=== PATIENT | female | born 1960 | race Caucasian/White ===

== ENCOUNTER 2016-07-10 14:00 | Outpatient (CLI) | payer MEDICARE, MEDICAID | END 2016-07-10 14:01 | disposition home or self-care (01) | DX: G40.909 Epilepsy, unspecified, not intractable, without status epilepticus (principal) ==

== ENCOUNTER 2016-08-05 10:18 | Outpatient (CLI) | payer MEDICARE, MEDICAID | END 2016-08-05 10:19 | disposition home or self-care (01) | DX: S83.282A Other tear of lateral meniscus, current injury, left knee, initial encounter (principal); A52.16 Charcot's arthropathy (tabetic) ==

== ENCOUNTER 2016-08-05 10:31 | Outpatient (CLI) | payer MEDICARE, MEDICAID | END 2016-08-05 10:32 | disposition home or self-care (01) | DX: M79.671 Pain in right foot (principal) ==

== ENCOUNTER 2016-08-14 | Outpatient (CLI) | payer MEDICARE, MEDICAID | END 2016-08-14 13:05 | disposition home or self-care (01) ==

== ENCOUNTER 2016-08-28 08:22 | Outpatient (CLI) | payer MEDICARE, MEDICAID | END 2016-08-28 08:23 | disposition home or self-care (01) | DX: K74.60 Unspecified cirrhosis of liver (principal); R16.1 Splenomegaly, not elsewhere classified; M79.672 Pain in left foot; Z89.422 Acquired absence of other left toe(s) ==

== ENCOUNTER 2016-08-28 09:01 | Outpatient (CLI) | payer MEDICARE, MEDICAID | END 2016-08-28 09:02 | disposition home or self-care (01) | DX: M79.672 Pain in left foot (principal); Z89.422 Acquired absence of other left toe(s); K74.60 Unspecified cirrhosis of liver; R16.1 Splenomegaly, not elsewhere classified ==

== ENCOUNTER 2016-12-12 12:38 | Emergency (ER) | payer MEDICARE, MEDICAID ==
[2016-12-12 13:24] LABS: BASOPHILS % (AUTO) 0.6 %; EOSINOPHILS % (AUTO) 0.6 %; HCT - HEMATOCRIT 31.2 % (37.0-47.0); HGB - HEMOGLOBIN 10.6 g/dL (12.0-16.0); LYMPHOCYTES # (AUTO) 0.5 10^3/uL (1.5-3.5); LYMPHOCYTES % (AUTO) 10.9 %; MEAN CORPUSCULAR HEMOGLOBIN 28.5 pg (27.0-31.0); MEAN CORPUSCULAR HGB CONC 33.9 g/dL (32.0-36.0); MEAN CORPUSCULAR VOLUME 84.1 fL (81.0-99.0); MEAN PLATELET VOLUME 9.4 fL (7.9-10.8); MONOCYTES # (AUTO) 0.4 10^3/uL (0.0-1.0); MONOCYTES % (AUTO) 10.6 %; NEUTROPHILS # (AUTO) 3.2 10^3/uL (1.5-6.6); NEUTROPHILS % (AUTO) 77.3 %; RED BLOOD COUNT 3.71 10^6/uL (4.20-5.40); RED CELL DISTRIBUTION WIDTH 15.8 % (12.0-15.0); UNCORRECTED WHITE BLOOD COUNT 4.2 x10^3/uL; WHITE BLOOD COUNT 4.2 x10^3/uL (4.8-10.8)
--- NOTE | 2016-12-12 13:26 | ED Physician Documentation ---
PD HPI FEVER - Stated complaint Stated Complaint: FEVER - Chief complaint Chief Complaint: Fever - History obtained from History obtained from: Patient, Family - History of Present Illness Timing - onset: How many days ago (2) Timing duration: Days (2) Timing details: Gradual onset Pain level max: 0 Pain level now: 0 Associated symptoms: No: Hemoptysis, Dyspnea, NVD Contributing factors: Immunocompromised. No: Sick contact, Travel Recently seen: Surgery - Additional information Additional information: L subclavian artery stent placed 7 days ago. Started having fevers 2 days ago. Pt is on dialysis. Had dialysis this am. No fever at that time. States has had sore throat, cough since the surgery. +nausea. no vomiting, no change in chronic abd pain. Pt is anuric. Review of Systems Ten Systems: 10 systems reviewed and negative Respiratory: denies: Hemoptysis, Wheezing GI: denies: Vomiting, Hematemesis, Bloody / black stool Skin: denies: Rash Musculoskeletal: denies: Neck pain, Back pain Neurologic: denies: Focal weakness, Numbness, Headache PD PAST MEDICAL HISTORY - Past Medical History Past Medical History: Yes Cardiovascular: Congestive heart failure, Hypertension, High cholesterol, Coronary artery disease, Peripheral Vascular Disease, Angina, [place], Arrhythmia, Other Respiratory: Pneumonia, Shortness of breath, Sleep apnea, CPAP use, Other Neuro: Peripheral neuropathy, Seizure disorder Endocrine/Autoimmune: Type 2 diabetes, Other GI: GERD, GI bleed, Ulcers, Cirrhosis, Cholelithiasis, Other : Dialysis, Renal insuffiency, Other HEENT: Chronic vision loss, Other Psych: Depression, Anxiety, Panic attacks, Post traumatic stress disorder Musculoskeletal: Osteoarthritis, Fibromyalgia, Chronic back pain, Other Derm: None - Past Surgical History Past Surgical History: Yes General: EGD, Other Ortho: Carpal Tunnel surgery Cardiovascular: Coronary stent, Cardiac catheterization Neuro: Other HEENT: Myringotomy (tubes) Derm: Skin cancer surgery, Other - Present Medications Home Medications: Ambulatory Orders Medication Instructions Recorded Confirmed Acetaminophen [Tylenol Extra 650 mg PO DAILY PRN 11/08/12 06/17/16 Strength] Calcium Acetate [Phoslo] 667 mg PO BIDWM 11/08/12 06/17/16 Cinacalcet HCl [Sensipar] 30 mg PO QDDINNER 11/08/12 06/17/16 Dexlansoprazole [Dexilant] 60 mg PO QDAC 11/08/12 06/17/16 Mometasone Furoate [Nasonex] 2 puffs NS QAM 11/08/12 06/17/16 Ropinirole HCl [Requip Xl] 4.5 mg PO QPM 11/08/12 06/17/16 Vitamin B Complex [B Complete] 1 each PO QPM 11/08/12 06/17/16 Levetiracetam 750 - 1,000 mg PO DAILY 09/18/13 06/17/16 Nitroglycerin 0.4 mg PO Q5MIN PRN 12/28/13 06/17/16 Atorvastatin Calcium [Lipitor] 40 mg PO DAILY 10/09/14 06/17/16 oxyCODONE [Roxicodone] 5 mg PO Q4-6H #20 tablet 03/14/15 06/17/16 Bacillus Coagulans [Probiotic] 1 each PO DAILY 02/13/16 06/17/16 Docusate Sodium [Stool Softener] 1 cap PO DAILY PRN 02/13/16 06/17/16 Aspirin 81 mg PO DAILY 03/24/16 06/17/16 ALPRAZolam [Xanax] 0.25 mg PO DAILY 03/25/16 06/17/16 Paroxetine HCl [Paxil] 20 mg PO DAILY 03/25/16 06/17/16 Gabapentin 300 mg PO DAILY PM 06/12/16 06/17/16 Insulin Glargine,Hum.rec.anlog 14 unit SQ QDBREAKFAST 06/12/16 06/17/16 [Lantus Solostar] Insulin Glargine,Hum.rec.anlog 14 units SQ DAILY 06/17/16 06/17/16 [Lantus Solostar] Oseltamivir [Tamiflu] 75 mg PO BID #10 capsule 06/17/16 - Allergies Allergies/Adverse Reactions: Allergies Allergy/AdvReac Type Severity Reaction Status Date / Time amoxicillin trihydrate * Allergy Severe diarrhea Verified 03/14/15 15:38 [From Augmentin] benazepril HCl * Allergy Severe Dizziness Verified 03/14/15 15:38 [From Lotensin] cephalexin monohydrate * Allergy Severe bloody Verified 03/14/15 15:38 [From Keflex] diarrhea iodine Allergy Severe Hives Verified 03/24/16 10:56 metoclopramide Allergy Severe Hives Verified 03/24/16 10:56 potassium clavulanate * Allergy Severe diarrhea Verified 03/14/15 15:38 [From Augmentin] povidone-iodine Allergy Intermediate Itching Verified 03/24/16 10:56 [From Betadine] soap * [From Betadine] Allergy Intermediate Itching Verified 03/24/16 10:56 Sulfa (Sulfonamide Allergy Intermediate Hallucinati Verified 03/14/15 15:38 Antibiotics) ons cigarette smoke Allergy Respiratory Verified 03/25/16 08:22 perfume Allergy Respiratory Verified 03/25/16 08:22 strawberry Allergy Hives Verified 03/25/16 08:22 tetracycline [Tetracycline] AdvReac Severe RUINED Verified 03/14/15 15:38 TEETH ENAMEL iron sucrose complex * AdvReac Intermediate diarrhea Verified 03/14/15 15:38 [From Venofer] metoclopramide HCl * AdvReac Intermediate Emesis Verified 03/14/15 15:38 [From Reglan] nickel [Nickel] AdvReac Intermediate Rash Verified 03/14/15 15:38 adhesive AdvReac Mild Rash Verified 03/24/16 10:56 adhesive tape AdvReac Mild Rash Verified 03/24/16 10:56 rye Allergy Rash Uncoded 03/25/16 08:22 - Living Situation Living Situation: reports: With family Living Arrangement: reports: At home - Social History Does the pt smoke?: No Smoking Status: Never smoker Does the pt drink ETOH?: No Does the pt have substance abuse?: No - Family History Family history: reports: Non contributory - Immunizations Immunizations are current?: Yes - POLST Patient has POLST: No PD ED PE NORMAL - Vitals Vital signs reviewed: Yes - General General: Alert and oriented X 3, No acute distress, Well developed/nourished - HEENT HEENT: PERRL, Moist mucous membranes - Neck Neck: Supple, no meningeal sign - Cardiac Cardiac: RRR, Strong equal pulses - Respiratory Respiratory: No respiratory distress, Clear bilaterally - Abdomen Abdomen: Soft, Non tender, Non distended - Derm Derm: Warm and dry - Extremities Extremities: No edema, No calf tenderness / cord - Neuro Neuro: Alert and oriented X 3 - Psych Psych: Normal mood, Normal affect Results - Vitals Vitals: Vital Signs - 24 hr 12/12/16 12/12/16 12/12/16 12:39 15:00 17:19 Temperature 39.4 C H 39 C H 39.1 C H Heart Rate 96 88 91 Respiratory 18 18 18 Rate Blood Pressure 144/72 H 132/53 H 130/69 O2 Saturation 98 98 97 Oxygen O2 Source Room air - Labs Labs: Laboratory Tests 12/12/16 12/12/16 12/12/16 13:05 13:05 13:05 WBC 4.2 L RBC 3.71 L Hgb 10.6 L Hct 31.2 L MCV 84.1 MCH 28.5 MCHC 33.9 RDW 15.8 H Plt Count 103 L MPV 9.4 Neut # 3.2 Lymph # 0.5 L [place] # 0.4 Eos # 0.0 Baso # 0.0 Absolute Nucleated RBC 0.00 Nucleated RBCs 0.0 Manual Slide Review Indicated Sodium 136 Potassium 4.4 Chloride 95 L Carbon Dioxide 28 Anion Gap 13.0 BUN 20 Creatinine 5.0 H Estimated GFR (MDRD) 9 L Glucose 197 H Lactic Acid 2.3 H Calcium 9.0 Total Bilirubin 1.4 H AST 37 ALT 31 Alkaline Phosphatase 126 H Total Protein 7.2 Albumin 3.4 Globulin 3.8 Albumin/Globulin Ratio 0.9 L Lipase 36 Group A Strep Rapid 12/12/16 13:30 WBC RBC Hgb Hct MCV MCH MCHC RDW Plt Count MPV Neut # Lymph # [place] # Eos # Baso # Absolute Nucleated RBC Nucleated RBCs Manual Slide Review Sodium Potassium Chloride Carbon Dioxide Anion Gap BUN Creatinine Estimated GFR (MDRD) Glucose Lactic Acid Calcium Total Bilirubin AST ALT Alkaline Phosphatase Total Protein Albumin Globulin Albumin/Globulin Ratio Lipase Group A Strep Rapid Negative - Rads (name of study) cxr Radiology: Prelim report reviewed, EMP read contemporaneously, See rad report ( No acute disease identified. ) PD MEDICAL DECISION MAKING - ED course Complexity details: reviewed results, re-evaluated patient, considered differential, d/w patient, d/w family, d/w weight loss sales consultant ED course: 1500 - Dr. Diggs (hospitalist) at [facility] accepts in transfer. Given IV vanco and levaquin here. Patient is well-appearing, nontoxic but does have an elevated lactate. Concern for sepsis. Blood cultures drawn. Chest x-ray negative. Patient is an uric. Given IV fluids. Has multiple antibiotic allergies. Therefore will treat with Levaquin and vancomycin. Likely that this is related to the recent stent placement. Will transfer the patient to [facility] in [place] as dialysis is not available here. This document was made in part using voice recognition software. While efforts are made to proofread this document, sound alike and grammatical errors may occur. Departure - Departure Disposition: 02 Transfer Acute Care Hosp Clinical Impression: Fever Qualifiers: Fever type: unspecified Qualified Code(s): R50.9 - Fever, unspecified Sepsis Qualifiers: Sepsis type: sepsis due to unspecified organism Qualified Code(s): A41.9 - Sepsis, unspecified organism Condition: Stable Discharge Date/Time: 12/12/16 17:20
[2016-12-12 13:39] LABS: ALBUMIN/GLOBULIN RATIO 0.9 (1.0-2.2); BILIRUBIN,TOTAL 1.4 mg/dL (0.2-1.0); POTASSIUM 4.4 mmol/L (3.5-5.0); TOTAL PROTEIN 7.2 g/dL (6.7-8.2)
[2016-12-12] MEDS ORDERED: SODIUM CHLORIDE 0.9% 500 ML IV ONE (13:39)
[2016-12-12 14:00] LABS: RAPID STREP SCREEN REAGENT QC YELLOW (YELLOW)
[2016-12-12] MEDS ORDERED: SODIUM CHLORIDE 0.9% IV STA (14:42)
[2016-12-12] MEDS ORDERED: VANCOMYCIN PER PHARMACY IV STA (14:42)
[2016-12-12] MEDS ORDERED: SODIUM CHLORIDE 0.9% 1,000 ML IV ONE (14:45)
[2016-12-12] MEDS ORDERED: VANCOMYCIN INJ 1 GM, VANCOMYCIN INJ 500 MG in SODIUM CHLORIDE 0.9% 500 ML IV STA (14:54)
--- NOTE | 2016-12-12 15:00 | XRAY Preliminary Report ---
Exam: XR Chest 2 View PA/LAT IMPRESSION: No acute disease identified. [facility] SITE ID: [id number]
--- NOTE | 2016-12-12 15:03 | XRAY Report ---
EXAM: CHEST RADIOGRAPHY EXAM DATE: 12/12/2016 02:34 PM. CLINICAL HISTORY: Cough, fever. COMPARISON: 06/17/2016. TECHNIQUE: 2 views. FINDINGS: Lungs/Pleura: No focal opacities evident. No pleural effusion. No pneumothorax. Normal volumes. Evalu ation slightly limited secondary to large amount of overlying soft tissue. Mediastinum: Mildly enlarged without focal masses identified. Other: None. IMPRESSION: No acute disease identified. [facility] Referring Provider Line: [phone] SITE ID: [id number]
[2016-12-12 17:20] VITALS: BP 130/69
== END 2016-12-12 17:20 | disposition short-term general hospital (02) ==
LOC: ED 12:38
DX: A41.9 Sepsis, unspecified organism (principal); Z95.828 Presence of other vascular implants and grafts; Z99.2 Dependence on renal dialysis; Z88.1 Allergy status to other antibiotic agents; Z88.0 Allergy status to penicillin; Z88.2 Allergy status to sulfonamides; I11.0 Hypertensive heart disease with heart failure; I50.9 Heart failure, unspecified; I25.10 Atherosclerotic heart disease of native coronary artery without angina pectoris; Z95.5 Presence of coronary angioplasty implant and graft; I25.2 Old myocardial infarction; E11.42 Type 2 diabetes mellitus with diabetic polyneuropathy; Z79.4 Long term (current) use of insulin; Z79.82 Long term (current) use of aspirin
CPT/HCPCS: 36415; 71020; 80053; 83605; 83690; 85025; 87040; 87070; 87430; 96361; 96365; 96367; 99284; 99285; J3370

== ENCOUNTER 2016-12-12 17:18 | Outpatient (CLI) | payer MEDICARE, MEDICAID | END 2016-12-12 17:19 | disposition short-term general hospital (02) | LOC: EMS 17:18 | PROVIDERS: ATTEND Surgery | DX: A41.9 Sepsis, unspecified organism (principal) | CPT/HCPCS: A0425; A0426 ==

== ENCOUNTER 2017-02-24 11:14 | Outpatient (CLI) | payer MEDICARE, MEDICAID ==
--- NOTE | 2017-02-24 16:01 | Ultrasound Report ---
COMPLETE ABDOMINAL ULTRASOUND: 02/24/2017 CLINICAL INDICATION: Cirrhosis. COMPARISON: 08/28/2016 TECHNIQUE: Real-time scanning was performed with visitor services representative static images obtained. FINDINGS: The liver measures 14.7 cm. Hepatic echotexture is heterogeneous, with a nodular surface, compatible with cirrhosis. No focal parenchymal lesion or intrahepatic biliary dilatation is presen t. A small amount of pneumobilia is noted, likely related to previous sphincterotomy. The common bi le duct measures 4 mm. The gallbladder again demonstrates stones. The visualized pancreas is unrema rkable. The right kidney measures 19.5 cm, and demonstrates polycystic changes. The left kidney is surgically absent. The spleen measures 18.7 cm, and again demonstrates calcification. The abdominal aorta is normal in caliber. The inferior vena cava is unremarkable. No free fluid is present. IMPRESSION: CONTRACTED GALLBLADDER, WITH CALCULI. STABLE CIRRHOTIC CHANGES. NO ASCITES. POLYCYSTI C RIGHT KIDNEY. JOB #: [id number] EXT JOB #:
== END 2017-02-24 11:15 | disposition home or self-care (01) ==
LOC: DI 11:14
PROVIDERS: ATTEND Internal Medicine Gastroenterology
DX: K74.60 Unspecified cirrhosis of liver (principal); K80.20 Calculus of gallbladder without cholecystitis without obstruction
CPT/HCPCS: 76700

== ENCOUNTER 2017-06-25 08:44 | Outpatient (CLI) | payer MEDICARE, MEDICAID ==
--- NOTE | 2017-06-26 10:01 | Ultrasound Report ---
DATE OF SERVICE: 06/25/2017 DIGITAL BILATERAL DIAGNOSTIC MAMMOGRAM: 06/25/2017, RIGHT BREAST ULTRASOUND: 06/25/2017 COMPARISON: None. Baseline exam. INDICATION: Right breast lump. TECHNIQUE: Bilateral MLO and CC breast views. FINDINGS: The breast parenchyma is heterogeneously dense, which may limit the sensitivity of mammography. A marker has been placed on the periareolar right breast lower inner quadrant. No dominant mass, architectural distortion, or concerning cluster of microcalcifications is seen. Focused sonography of the area of concern demonstrates an isoechoic nodule, 5 x 4 x 2 mm, with a split dermis sign, consistent with an epidermal inclusion cyst. IMPRESSION: BI-RADS category 2. Benign findings. RECOMMENDATIONS: Annual screening mammogram. STANDARD QUALIFYING STATEMENTS 1. This examination was reviewed with the aid of Computed-Aided Detection (CAD) . 2. A negative or benign imaging report should not delay biopsy if clinically suspicious findings are present. Consider surgical consultation if warranted. More than 5% of cancers are not identified by imaging. 3. Dense breasts may obscure an underlying neoplasm. TD: 06/25/2017 18:56 TARAH
== END 2017-06-25 08:45 | disposition home or self-care (01) ==
LOC: DI 08:44
PROVIDERS: ATTEND Family Medicine
DX: N63.14 Unspecified lump in the right breast, lower inner quadrant (principal)
CPT/HCPCS: 76642; 77066

== ENCOUNTER 2017-12-08 07:55 | Outpatient (CLI) | payer MEDICARE, MEDICAID ==
[2017-12-08 08:34] LABS: ABNORMAL LYMPHS % (MANUAL) 0 %
[2017-12-08 08:39] LABS: BASOPHILS % (AUTO) 0.9 %; EOSINOPHILS % (AUTO) 1.9 %; HGB - HEMOGLOBIN 9.7 g/dL (12.0-16.0); LYMPHOCYTES % (AUTO) 16.8 %; MEAN CORPUSCULAR HEMOGLOBIN 31.6 pg (27.0-31.0); MEAN CORPUSCULAR HGB CONC 33.6 g/dL (32.0-36.0); MEAN CORPUSCULAR VOLUME 93.9 fL (81.0-99.0); MEAN PLATELET VOLUME 8.3 fL (7.9-10.8); MONOCYTES % (AUTO) 7.7 %; NEUTROPHILS % (AUTO) 72.7 %; PLT - PLATELET COUNT 112 10^3/uL (130-450); RED BLOOD COUNT 3.08 10^6/uL (4.20-5.40); RED CELL DISTRIBUTION WIDTH 16.2 % (12.0-15.0); WHITE BLOOD COUNT 4.7 x10^3/uL (4.8-10.8)
[2017-12-08 09:06] LABS: BAND NEUTROPHILS % (MANUAL) 3 %; BASOPHILS # (MANUAL) 0.4 10^3/uL (0-0.1); BASOPHILS % (MANUAL) 8 %; DIFFERENTIAL COMMENT MANUAL DIFFERENTIAL; LYMPHOCYTES # (MANUAL) 0.8 10^3/uL (1.5-3.5); LYMPHOCYTES % (MANUAL) 14 %; MONOCYTES # (MANUAL) 0.2 10^3/uL (0.0-1.0); NEUTROPHILS # (MANUAL) 3.3 10^3/uL (1.5-6.6); NEUTROPHILS % (MANUAL) 67 %; RBC MORPHOLOGY (MULTIPLE) 2+ ANISOCYTOSIS (NORMAL)
[2017-12-08 09:27] LABS: HB2 TOTAL 10.3 g/dL; HEMOGLOBIN A1C 0.36 g/dL; HEMOGLOBIN A1C % 5.3 % (4.6-6.2)
[2017-12-08 09:34] LABS: ALBUMIN 3.3 g/dL (3.2-5.5); ALBUMIN/GLOBULIN RATIO 0.9 (1.0-2.2); ALKALINE PHOSPHATASE 141 IU/L (42-121); ALT ALANINE AMINOTRANSFERASE 22 IU/L (10-60); AST ASPARTATE AMINOTRANSFERASE 22 IU/L (10-42); BILIRUBIN,TOTAL 0.9 mg/dL (0.2-1.0); BUN - BLOOD UREA NITROGEN 47 mg/dL (6-20); CALCIUM 9.5 mg/dL (8.5-10.3); CARBON DIOXIDE - CO2 28 mmol/L (21-32); CHLORIDE 98 mmol/L (101-111); CHOL/HDL RATIO 5.2 (<4.4); CHOLESTEROL 120 mg/dL; CREATININE 6.6 mg/dL (0.4-1.0); GFR - MDRD 6 (>89); GLUCOSE 147 mg/dL (70-100); HDL CHOLESTEROL 23 mg/dL; LDL CHOLESTEROL,CALCULATED 43 mg/dL; LDL/HDL RATIO 1.9 (<4.4); SODIUM 135 mmol/L (135-145); TOTAL PROTEIN 6.8 g/dL (6.7-8.2); VLDL CHOLESTEROL 54 mg/dL
--- NOTE | 2017-12-08 16:30 | XRAY Report ---
Procedure Date: 12/08/2017 Accession Number: [id number] / [id number] Procedure: XR - Foot 3 View LT CPT Code: FULL RESULT: EXAM: LEFT FOOT RADIOGRAPHY EXAM DATE: 12/08/2017 08:19 AM. CLINICAL HISTORY: PAIN EDEMA L FOOT. COMPARISON: 08/28/2016. TECHNIQUE: 3 views. FINDINGS: Bones: No acute fracture. No osseous obstruction. Prior amputation of the second toe, unchanged. Prominent dorsal calcaneal spur unchanged. Joints: Mild subluxation of the first interphalangeal joint is unchanged. Hammertoe deformities. Soft Tissues: Diffuse soft tissue edema. Lower leg clips. IMPRESSION: No acute osseus abnormality. Diffuse soft tissue edema. [facility]
== END 2017-12-08 07:56 | disposition home or self-care (01) ==
LOC: DI 07:55
PROVIDERS: ATTEND Podiatrist
DX: M79.672 Pain in left foot (principal); R60.0 Localized edema; E11.9 Type 2 diabetes mellitus without complications
CPT/HCPCS: 36415; 80053; 80061; 83036; 83721; 84443; 85025

== ENCOUNTER 2018-01-12 10:51 | Outpatient (CLI) | payer MEDICARE, MEDICAID ==
--- NOTE | 2018-01-12 12:15 | XRAY Report ---
Procedure Date: 01/12/2018 Accession Number: [id number] / [id number] Procedure: XR - Knee 3 View RT CPT Code: FULL RESULT: EXAM: Knee 3 View RT DATE: 01/12/2018 11:17 AM CLINICAL HISTORY: KNEE PAIN,RIGHT COMPARISON: None. TECHNIQUE: 3 views. FINDINGS: Bones: Normal. No fractures or bone lesions. Joints: Mild loss of joint space, most pronounced in the medial femorotibial compartment and along the medial patellar facet. Soft Tissues: Normal. No soft tissue swelling. IMPRESSION: Mild degenerative changes. [facility]
== END 2018-01-12 10:52 | disposition home or self-care (01) ==
LOC: DI 10:51
PROVIDERS: ATTEND Family Medicine
DX: M17.11 Unilateral primary osteoarthritis, right knee (principal)

== ENCOUNTER 2018-08-17 11:18 | Outpatient (CLI) | payer MEDICARE, MEDICAID ==
--- NOTE | 2018-08-17 14:49 | XRAY Report ---
Reason: BILAT FOOT PAIN + EDEMA LATERAL L FOOT Procedure Date: 08/17/2018 Accession Number: [id number] / [id number] Procedure: XR - Foot 3 View BILAT CPT Code: FULL RESULT: EXAMS: 1. Right Foot Radiography 2. Left Foot Radiography EXAM DATE: 08/17/2018 12:00 PM. CLINICAL HISTORY: Bilateral foot pain + edema lateral left foot. COMPARISON: FOOT 3 VIEW LT 12/08/2017 8:08 AM. TECHNIQUE: 3 views each foot. FINDINGS: Right: Bones: Pes planus deformity. No fracture is detected. Joints: Pronounced midfoot degenerative changes. Soft Tissues: Soft tissue plethora. Left: Bones: Mild pes planus. Pronounced posterior calcaneal enthesopathy. Status post transphalangeal amputation of the second ray. No fracture is identified. Joints: Subluxation of the first interphalangeal joint. Soft Tissues: Surgical clips are noted near the medial ankle. Plethora. IMPRESSION: Right midfoot degenerative changes, marked. Bilateral pes planus. [facility]
== END 2018-08-17 11:19 | disposition home or self-care (01) ==
LOC: DI 11:18
PROVIDERS: ATTEND Podiatrist
DX: M19.071 Primary osteoarthritis, right ankle and foot (principal); S93.132A Subluxation of interphalangeal joint of left great toe, initial encounter; M21.42 Flat foot [pes planus] (acquired), left foot; M21.41 Flat foot [pes planus] (acquired), right foot

== ENCOUNTER 2018-09-30 15:34 | Outpatient (CLI) | payer MEDICARE, MEDICAID ==
[2018-10-02 16:01] LABS: ALBUMIN 3.3 g/dL (3.8-4.8); ALPHA 1 GLOBULIN 0.4 g/dL (0.2-0.3); ALPHA 2 GLOBULIN 0.7 g/dL (0.5-0.9); BETA 1 GLOBULIN 0.4 g/dL (0.4-0.6); BETA 2 GLOBULIN 0.4 g/dL (0.2-0.5)
== END 2018-09-30 15:35 | disposition home or self-care (01) ==
LOC: LAB 15:34
PROVIDERS: ATTEND Internal Medicine Nephrology
DX: D63.1 Anemia in chronic kidney disease (principal)
CPT/HCPCS: 36415; 81599; 83883; 84155; 84165; 86334

== ENCOUNTER 2018-10-08 08:00 | Outpatient (CLI) | payer MEDICARE, MEDICAID | END 2018-10-08 08:01 | disposition home or self-care (01) | LOC: LAB.R 08:00 | PROVIDERS: ATTEND Podiatrist | DX: E11.622 Type 2 diabetes mellitus with other skin ulcer (principal) | CPT/HCPCS: 87070; 87077; 87181; 87205 ==

== ENCOUNTER 2018-10-22 15:02 | Outpatient (CLI) | payer MEDICARE, MEDICAID ==
--- NOTE | 2018-10-25 00:34 | XRAY Report ---
Reason: PRESSURE ULCER RIGHT HALLUX CHANGING SHAPE Procedure Date: 10/22/2018 Accession Number: [id number] / [id number] Procedure: XR - Toe(s) RT CPT Code: FULL RESULT: EXAM: RIGHT GREAT TOE RADIOGRAPHY EXAM DATE: 10/22/2018 03:23 PM. CLINICAL HISTORY: Pressure ulcer. COMPARISON: FOOT 3 VIEW BILAT 08/17/2018 11:34 AM. TECHNIQUE: 3 views. FINDINGS: Bones: Nondisplaced fracture of the shaft of the distal phalanx, with bony osteolysis involving the tuft and loss of cortical white line. Joints: Normal. No subluxations. Soft Tissues: Unremarkable. IMPRESSION: 1. Osteolysis involving the tuft of the distal phalanx concerning for osteomyelitis. 2. Nondisplaced shaft fracture of the distal phalanx. [facility]
== END 2018-10-22 15:03 | disposition home or self-care (01) ==
LOC: DI 15:02
PROVIDERS: ATTEND Podiatrist
DX: M89.571 Osteolysis, right ankle and foot (principal); S92.424A Nondisplaced fracture of distal phalanx of right great toe, initial encounter for closed fracture; L89.899 Pressure ulcer of other site, unspecified stage
CPT/HCPCS: 73660

== ENCOUNTER 2018-11-02 06:06 | Day surgery (SDC) | payer MEDICARE, MEDICAID ==
[2018-11-02] MEDS ORDERED: LIDOCAINE-MPF 2% 5 ML VIAL IM ONE (06:07)
[2018-11-02] MEDS ORDERED: MIDAZOLAM 2 MG/2 ML VIAL IVP ONE (06:07)
[2018-11-02] MEDS ORDERED: fentaNYL 100 MCG/2 ML VIAL IVP ONE (06:07)
[2018-11-02] MEDS ORDERED: PROPOFOL 200 MG/20 ML VIAL IVP ONE (06:07)
[2018-11-02] MEDS ORDERED: LACTATED RINGERS 1,000 ML IV ONE (07:05)
--- NOTE | 2018-11-02 07:09 | ANESTHESIA ---
Pre-Anesthesia VS, & Labs - Diagnosis right great toe osteomyelitis - Procedure Right great toe partial amputation Vital Signs: Temp Pulse Resp BP Pulse Ox 37 C 74 18 130/59 L 94 11/02/18 06:37 11/02/18 06:37 11/02/18 06:37 11/02/18 06:37 11/02/18 06:37 Height 5 ft 3 in Weight (kg) 124.1 kg Body Mass Index 33.3 - NPO >8 hours - Is Patient ?: No - Lab Results Current Lab Results: Laboratory Tests 11/02/18 06:54: POC Whole Bld Glucose 155 H Home Medications and Allergies Home Medications: Ambulatory Orders Calcium Acetate [Phoslo] 2 tab PO TIDWM 10/29/18 Cinacalcet HCl [Sensipar] 30 mg PO DAILY 10/29/18 L. Acidophilus/L. Rhamnosus [Probiotic 15 Billion Cell Cap] 1 each PO DAILY 10/29/18 oxyCODONE [Roxicodone] 5 mg PO TID 10/29/18 Amoxicillin 1 BID 11/02/18 Insulin Aspart Prot/Insuln Asp [Novolog Mix 70-30 Flexpen Syrn] 15 TID 11/02/18 Dexlansoprazole [Dexilant] 60 mg PO DAILY 11/08/12 Ropinirole HCl [Requip Xl] 3 mg PO QPM 11/08/12 Vitamin B Complex [B Complete] 2,000 units PO QPM 11/08/12 Nitroglycerin 0.4 mg PO Q5MIN PRN 12/28/13 Atorvastatin Calcium [Lipitor] 40 mg PO DAILY 10/09/14 Aspirin 81 mg PO DAILY 03/24/16 Paroxetine HCl [Paxil] 40 mg PO DAILY 03/25/16 Insulin Glargine,Hum.rec.anlog [Lantus Solostar] 15 unit SQ QDBREAKFAST 06/12/16 Insulin Glargine,Hum.rec.anlog [Lantus Solostar] 12 units SQ DAILY 06/17/16 Insulin Glargine [Lantus Solostar] 25 unit SQ QDBREAKFAST 09/17/18 Insulin Glargine,Hum.rec.anlog [Basaglar Kwikpen U-100] 10 unit SUBQ DAILY 09/17/18 Levetiracetam [Keppra] 1,000 mg PO DAILY 09/17/18 Nystatin 1 each MC DAILY 09/17/18 Pregabalin [Lyrica] 75 - 150 mg PO DAILY 09/17/18 hydrOXYzine HCl [Hydroxyzine HCl] 12.5 mg PO QID PRN 09/17/18 Calcium Acetate [Phoslo] 2 tab PO TIDWM 10/29/18 Cinacalcet HCl [Sensipar] 30 mg PO DAILY 10/29/18 L. Acidophilus/L. Rhamnosus [Probiotic 15 Billion Cell Cap] 1 each PO DAILY 10/29/18 oxyCODONE [Roxicodone] 5 mg PO TID 10/29/18 Allergies/Adverse Reactions: Allergies Allergy/AdvReac Type Severity Reaction Status Date / Time amoxicillin trihydrate * Allergy Severe diarrhea Verified 09/17/18 14:47 [From Augmentin] benazepril HCl * Allergy Severe Dizziness Verified 09/17/18 14:47 [From Lotensin] cephalexin monohydrate * Allergy Severe bloody Verified 09/17/18 14:47 [From Keflex] diarrhea iodine Allergy Severe Hives Verified 09/17/18 14:47 metoclopramide Allergy Severe Hives Verified 09/17/18 14:47 potassium clavulanate * Allergy Severe diarrhea Verified 09/17/18 14:47 [From Augmentin] povidone-iodine Allergy Intermediate Itching Verified 09/17/18 14:47 [From Betadine] soap * [From Betadine] Allergy Intermediate Itching Verified 09/17/18 14:47 Sulfa (Sulfonamide Allergy Intermediate Hallucinati Verified 09/17/18 14:47 Antibiotics) ons cigarette smoke Allergy Respiratory Verified 09/17/18 14:47 perfume Allergy Respiratory Verified 09/17/18 14:47 strawberry Allergy Hives Verified 09/17/18 14:47 tetracycline [Tetracycline] AdvReac Severe RUINED Verified 09/17/18 14:47 TEETH ENAMEL iron sucrose complex * AdvReac Intermediate diarrhea Verified 09/17/18 14:47 [From Venofer] metoclopramide HCl * AdvReac Intermediate Emesis Verified 09/17/18 14:47 [From Reglan] nickel [Nickel] AdvReac Intermediate Rash Verified 09/17/18 14:47 adhesive AdvReac Mild Rash Verified 09/17/18 14:47 adhesive tape AdvReac Mild Rash Verified 09/17/18 14:47 rye Allergy Rash Uncoded 09/17/18 14:47 Anes History & Medical History - Anesthetic History Anesthesia Complications: reports: No previous complications - Medical History Cardiovascular: reports: Congestive heart failure, Hypertension, High cholesterol, Coronary artery disease, Peripheral Vascular Disease, Angina, [place], Arrhythmia, Other Pulmonary: reports: Pneumonia, Shortness of breath, Sleep apnea, Other Gastrointestinal: reports: GERD, GI bleed, Ulcers, Cirrhosis, Cholelithiasis, Other Urinary: reports: Dialysis, Renal insuffiency, Other Musculoskeletal: reports: Osteoarthritis, Fibromyalgia, Chronic back pain, Other Endocrine/Autoimmune: reports: Type 2 diabetes, Other Blood Disorders: reports: Anemia Skin: reports: None Smoking Status: Never smoker - Surgical History General: Cholecystectomy, EGD, Other Eyes Ears Nose Throat (EENT): Myringotomy (tubes) Cardiothoracic: Coronary stent, Cardiac catheterization Urologic: Nephrectomy Neurologic: Other Orthopedic: Carpal Tunnel surgery Dermatologic: Skin cancer surgery, Other Results - EKG Results EKG Comparison: Reviewed EKG, Unchanged from prior EKG (inferior Q waves) Exam General: Alert Dental: WNL Mallampati classification: III Respiratory: Lungs clear Cardiovascular: Regular rate, Normal S1, Normal S2 Plan Anesthesia Type: MAC, Other Block (local by surgeon) Consent for Procedure(s) Verified and Reviewed: Yes Code Status: Attempt Resuscitation ASA classification: 4-Incapacitating disease Is this case an emergency?: No
[2018-11-02 07:10] LABS: BASOPHILS % (AUTO) 0.8 %; EOSINOPHILS # (AUTO) 0.1 10^3/uL (0.0-0.7); EOSINOPHILS % (AUTO) 2.2 %; HGB - HEMOGLOBIN 8.9 g/dL (12.0-16.0); LYMPHOCYTES # (AUTO) 0.6 10^3/uL (1.5-3.5); LYMPHOCYTES % (AUTO) 15.2 %; MEAN CORPUSCULAR HEMOGLOBIN 26.4 pg (27.0-31.0); MEAN CORPUSCULAR HGB CONC 32.3 g/dL (32.0-36.0); MEAN CORPUSCULAR VOLUME 81.6 fL (81.0-99.0); MEAN PLATELET VOLUME 8.6 fL (7.9-10.8); MONOCYTES # (AUTO) 0.3 10^3/uL (0.0-1.0); MONOCYTES % (AUTO) 7.3 %; NEUTROPHILS % (AUTO) 74.5 %; PLT - PLATELET COUNT 109 10^3/uL (130-450); RED BLOOD COUNT 3.38 10^6/uL (4.20-5.40); RED CELL DISTRIBUTION WIDTH 19.4 % (12.0-15.0)
[2018-11-02 07:18] LABS: CREATININE 6.1 mg/dL (0.4-1.0)
[2018-11-02] MEDS ORDERED: SODIUM CHLORIDE 0.9% 1,000 ML IV ONE (07:28)
[2018-11-02] MEDS ORDERED: BUPIVACAINE 0.5% PF 30 ML VIAL INFIL ONE ×2 (08:01)
[2018-11-02 09:35] VITALS: BP 100/52
--- NOTE | 2018-11-02 10:34 | OPERATIVE REPORT ---
DATE OF SERVICE: 11/02/2018 Physician: Jess Funk MD PREOPERATIVE DIAGNOSIS: Right great toe osteomyelitis involving distal phalanx. POSTOPERATIVE DIAGNOSIS: Right great toe osteomyelitis involving distal phalanx. PROCEDURE PERFORMED: Right great toe amputation at the level of the mid proximal phalanx. OPERATING SURGEON: Jess Funk MD ANESTHESIA: General and local, Lucho Ayers INDICATIONS FOR SURGERY: Patient is a 58-year-old female who has developed chronic breakdown and drainage of the end of her great toe, with small wounds with foul smelling discharge, and x-ray and MRI evidence of destruction of bone in the distal phalanx extending up to the IP joint. Patient is nonresponsive to conservative care; recommendation is that she have a more proximal amputation at the level of the mid phalanx. DESCRIPTION OF OPERATIVE PROCEDURE: Patient was taken to the operating room and was given MAC sedation and was given an ankle block anesthetic, infiltrating the ankle area with Marcaine 0.5% plain and using a small ring block at the mid metatarsal level, and then waiting approximately 5-10 minutes for the anesthetic effect. After testing skin, then proceeding with surgery, placing elliptical flaps planned out at the level of the mid phalanx and using an Esmarch as a midfoot tourniquet, then dissecting directly down to bone through these flaps, exposing the mid phalanx and dissecting through it with a bone cutter followed by use of a rongeur and a rasp. Then carefully irrigating the soft tissues, ensuring that there was no purulence or necrotic tissue - and there was none - dissecting the flexor tendons and the neurovascular bundles distal and transecting them slightly, and then approximating flaps with 4-0 nylon interrupted. There was minimal bleeding. There was no residual necrosis of tissue, and the flaps were not under tension. Soft dressings were applied. The patient was taken to the recovery room in stable condition. ESTIMATED BLOOD LOSS: 5 mL COMPLICATIONS: None. COUNTS: Sponge and needle counts correct. TD: 11/02/2018 09:20 [email or web address]
[2018-11-02] MEDS ORDERED: oxyCODONE 5 MG TABLET PO SCH (14:00)
== END 2018-11-02 06:07 | disposition home or self-care (01) ==
LOC: SDS 06:06
PROVIDERS: ATTEND Orthopaedic Surgery
PROC: 0HTRXZZ Resection of Toe Nail, External Approach (ICD-10-PCS; 2018-11-02)
PROC: 0QBQ0ZZ Excision of Right Toe Phalanx, Open Approach (ICD-10-PCS; principal; 2018-11-02 07:30)
DX: E11.69 Type 2 diabetes mellitus with other specified complication (principal); M86.171 Other acute osteomyelitis, right ankle and foot; B95.2 Enterococcus as the cause of diseases classified elsewhere; M84.674A Pathological fracture in other disease, right foot, initial encounter for fracture; E11.621 Type 2 diabetes mellitus with foot ulcer; L97.511 Non-pressure chronic ulcer of other part of right foot limited to breakdown of skin; E11.22 Type 2 diabetes mellitus with diabetic chronic kidney disease; N18.6 End stage renal disease; Z99.2 Dependence on renal dialysis; E11.610 Type 2 diabetes mellitus with diabetic neuropathic arthropathy; E11.42 Type 2 diabetes mellitus with diabetic polyneuropathy; E11.43 Type 2 diabetes mellitus with diabetic autonomic (poly)neuropathy; K31.84 Gastroparesis; E11.51 Type 2 diabetes mellitus with diabetic peripheral angiopathy without gangrene; E66.9 Obesity, unspecified; I13.2 Hypertensive heart and chronic kidney disease with heart failure and with stage 5 chronic kidney disease, or end stage renal disease; I50.9 Heart failure, unspecified; G47.30 Sleep apnea, unspecified; I25.119 Atherosclerotic heart disease of native coronary artery with unspecified angina pectoris; I25.2 Old myocardial infarction; Z89.422 Acquired absence of other left toe(s); Z95.5 Presence of coronary angioplasty implant and graft; Z68.42 Body mass index [BMI] 45.0-49.9, adult; Z79.4 Long term (current) use of insulin; Z79.899 Other long term (current) drug therapy; Z79.82 Long term (current) use of aspirin
CPT/HCPCS: 28124; 80048; 85025; 87070; 87077; 87181; 87205; 93005; J7120

== ENCOUNTER 2019-03-29 12:41 | Outpatient (CLI) | payer MEDICARE, MEDICAID ==
--- NOTE | 2019-03-29 17:04 | DEXA Report ---
Reason: POSTMENOPAUSAL STATUS Procedure Date: 03/29/2019 Accession Number: [id number] / [id number] Procedure: DEX - Dexa Spine and/or Hip CPT Code: FULL RESULT: EXAM: Dexa Spine and/or Hip DATE: 03/29/2019 1:09 PM CLINICAL HISTORY: POSTMENOPAUSAL STATUS TECHNIQUE: Dual energy x-ray absorptiometry (DXA) was performed on a [employer] System. Regions measured are the AP Spine, femoral neck, and if needed forearm. COMPARISON: None. In accordance with the International Society for Clinical Densitometry (ISCD) guidelines, data from previous exams may be reanalyzed using current recommendations and techniques. This is done to allow a more accurate basis for comparison with the current study. FINDINGS: The data for the lumbar spine is as follows: BMD (g/cm/cm) T-SCORE Z-SCORE REGION L1 1.271 1.2 1.0 L2 1.283 0.7 0.5 L3 1.234 0.3 0.1 L4 1.054 -1.2 -1.4 TOTAL 1.200 0.2 0.0 NOTE: All evaluable vertebrae are used for classification The data for the hip is as follows: BMD (g/cm/cm) T-SCORE Z-SCORE REGION Neck 0.934 -0.7 -0.4 TOTAL 0.951 -0.5 -0.5 NOTE: The femoral neck or total proximal femur, whichever is lowest, is used for classification. IMPRESSION: THE WHO CLASSIFICATION BASED ON THE INTERNATIONAL REFERENCE STANDARD IS NORMAL. THE FRACTURE RISK IS NOT INCREASED. RECOMMENDATION: Patients with diagnosis of osteoporosis or osteopenia should have regular bone mineral density assessment. For those eligible for Medicare, routine testing is allowed once every 2 years. Testing frequency can be increased for patients who have rapidly progressing disease or for those who are receiving medical therapy to restore bone mass. COMMENT: World Health Organization (WHO) definitions for osteoporosis and osteopenia: NORMAL BMD: T-score at -1.0 or higher, fracture risk is low OSTEOPENIA BMD: T-score between -1.0 and -2.5, fracture risk is increased. OSTEOPOROSIS BMD: T-score at -2.5 or lower, fracture risk is high. National Osteoporosis Foundation recommends: 1. Obtain adequate dietary calcium (at least 1200 mg per day) and vitamin D (400-800 international units per day). 2. Participate, as appropriate, in regular weightbearing and muscle-strengthening exercise. 3. Avoid tobacco use and reduce alcohol and caffeine intake. 4. For more detailed information see the website at www.NOF.org.
== END 2019-03-29 12:42 | disposition home or self-care (01) ==
LOC: DI 12:41
PROVIDERS: ATTEND Family Medicine
DX: Z78.0 Asymptomatic menopausal state (principal)
CPT/HCPCS: 77080

== ENCOUNTER 2019-10-12 09:33 | Outpatient (CLI) | payer MEDICARE, MEDICAID | END 2019-10-12 09:34 | disposition critical access hospital (66) | LOC: EMS 09:33 | PROVIDERS: ATTEND Surgery | DX: R50.9 Fever, unspecified (principal); R19.7 Diarrhea, unspecified; R26.81 Unsteadiness on feet | CPT/HCPCS: A0425; A0429 ==

== ENCOUNTER 2019-10-12 09:40 | Emergency (ER) | payer MEDICARE, MEDICAID ==
--- NOTE | 2019-10-12 10:01 | ED Physician Documentation ---
History of Present Illness - Stated complaint Stated Complaint: FEVER/SOA - History obtained from History obtained from: Patient, EMS - History of Present Illness Timing: How many days ago (3) Pain level max: 0 Pain level now: 0 - Additonal information Additional information: Patient is a 58-year-old female who presents to the emergency department for fever for the past 3 days. She is supposed to be dialyzed on Thursday, Thursday, Thursday. She has missed her last 2 dialysis sessions. She is having altered mental status. Dry cough. No vomiting. Increasing weakness. Nothing makes it better or worse. Review of Systems Ten Systems: 10 systems reviewed and negative Constitutional: reports: Fever, Chills Ears: denies: Ear pain Nose: denies: Rhinorrhea / runny nose, Congestion Throat: denies: Sore throat Respiratory: reports: Cough GI: denies: Abdominal Pain, Vomiting, Diarrhea Skin: denies: Rash Musculoskeletal: denies: Neck pain Neurologic: reports: Headache (mild, generalized). denies: Focal weakness, Numbness PD PAST MEDICAL HISTORY - Past Medical History Past Medical History: Yes Cardiovascular: Congestive heart failure, Hypertension, High cholesterol, Coronary artery disease, Peripheral Vascular Disease, Angina, [place], Arrhythmia, Other Respiratory: Pneumonia, Shortness of breath, Sleep apnea, CPAP use, Other Endocrine/Autoimmune: Type 2 diabetes, Other GI: GERD, GI bleed, Ulcers, Cirrhosis, Cholelithiasis, Other : Dialysis, Renal insuffiency, Other HEENT: Chronic vision loss, Other Psych: Depression, Anxiety, Panic attacks, Post traumatic stress disorder Musculoskeletal: Osteoarthritis, Fibromyalgia, Chronic back pain, Other Derm: None - Past Surgical History Past Surgical History: Yes General: EGD, Other Ortho: Carpal Tunnel surgery Cardiovascular: Coronary stent, Cardiac catheterization Neuro: Other HEENT: Myringotomy (tubes) Derm: Skin cancer surgery, Other - Present Medications Home Medications: Ambulatory Orders Medication Instructions Recorded Confirmed Dexlansoprazole [Dexilant] 60 mg PO DAILY 11/08/12 11/02/18 Ropinirole HCl [Requip Xl] 3 mg PO QPM 11/08/12 11/02/18 Vitamin B Complex [B Complete] 2,000 units PO QPM 11/08/12 11/02/18 Nitroglycerin 0.4 mg PO Q5MIN PRN 12/28/13 11/02/18 Atorvastatin Calcium [Lipitor] 40 mg PO DAILY 10/09/14 11/02/18 Aspirin 81 mg PO DAILY 03/24/16 11/02/18 PARoxetine HCl [Paxil] 40 mg PO DAILY 03/25/16 11/02/18 Insulin Glargine [Lantus Solostar] 25 unit SQ QDBREAKFAST 09/17/18 11/02/18 Levetiracetam [Keppra] 1,000 mg PO DAILY 09/17/18 11/02/18 Nystatin 1 each MC DAILY 09/17/18 11/02/18 Pregabalin [Lyrica] 75 - 150 mg PO DAILY 09/17/18 11/02/18 hydrOXYzine HCL [Hydroxyzine HCl] 12.5 mg PO QID PRN 09/17/18 11/02/18 Calcium Acetate [Phoslo] 2 tab PO TIDWM 10/29/18 11/02/18 Cinacalcet HCl [Sensipar] 30 mg PO DAILY 10/29/18 11/02/18 L. Acidophilus/L. Rhamnosus 1 each PO DAILY 10/29/18 11/02/18 [Probiotic 15 Billion Cell Cap] oxyCODONE [Roxicodone] 5 mg PO TID 10/29/18 11/02/18 Amoxicillin 1 BID 11/02/18 Insulin Aspart Prot/Insuln Asp 15 TID 11/02/18 [Novolog Mix 70-30 Flexpen Syrn] - Allergies Allergies/Adverse Reactions: Allergies Allergy/AdvReac Type Severity Reaction Status Date / Time amoxicillin trihydrate * Allergy Severe diarrhea Verified 09/17/18 14:47 [From Augmentin] benazepril HCl * Allergy Severe Dizziness Verified 09/17/18 14:47 [From Lotensin] cephalexin monohydrate * Allergy Severe bloody Verified 09/17/18 14:47 [From Keflex] diarrhea iodine Allergy Severe Hives Verified 09/17/18 14:47 metoclopramide Allergy Severe Hives Verified 09/17/18 14:47 potassium clavulanate * Allergy Severe diarrhea Verified 09/17/18 14:47 [From Augmentin] povidone-iodine Allergy Intermediate Itching Verified 09/17/18 14:47 [From Betadine] soap * [From Betadine] Allergy Intermediate Itching Verified 09/17/18 14:47 Sulfa (Sulfonamide Allergy Intermediate Hallucinati Verified 09/17/18 14:47 Antibiotics) ons cigarette smoke Allergy Respiratory Verified 09/17/18 14:47 perfume Allergy Respiratory Verified 09/17/18 14:47 strawberry Allergy Hives Verified 09/17/18 14:47 tetracycline [Tetracycline] AdvReac Severe RUINED Verified 09/17/18 14:47 TEETH ENAMEL iron sucrose complex * AdvReac Intermediate diarrhea Verified 09/17/18 14:47 [From Venofer] metoclopramide HCl * AdvReac Intermediate Emesis Verified 09/17/18 14:47 [From Reglan] nickel [Nickel] AdvReac Intermediate Rash Verified 09/17/18 14:47 adhesive AdvReac Mild Rash Verified 09/17/18 14:47 adhesive tape AdvReac Mild Rash Verified 09/17/18 14:47 - Social History Does the pt smoke?: No Smoking Status: Never smoker Does the pt drink ETOH?: No Does the pt have substance abuse?: No - Immunizations Immunizations are current?: Yes - POLST Patient has POLST: No PD ED PE NORMAL - Vitals Vital signs reviewed: Yes - General General: Alert and oriented X 3, Other (rigors in the bed) - HEENT HEENT: PERRL, Moist mucous membranes, Pharynx benign - Neck Neck: Supple, no meningeal sign - Cardiac Cardiac: RRR, Strong equal pulses - Respiratory Respiratory: No respiratory distress, Other (crackles B) - Abdomen Abdomen: Soft, Other (mild distention) - Derm Derm: Warm and dry - Extremities Extremities: Other (diffuse anasarca) - Neuro Neuro: Alert and oriented X 3 - Psych Psych: Normal mood, Normal affect Results - Vitals Vitals: Vital Signs - 24 hr 10/12/19 10/12/19 10/12/19 09:45 10:26 10:30 Temperature 36.9 C 39.6 C H Heart Rate 100 98 98 Respiratory 24 26 H 24 Rate Blood Pressure 155/58 H 145/58 H 145/79 H O2 Saturation 92 98 92 10/12/19 10/12/19 10/12/19 11:00 11:58 12:15 Temperature Heart Rate 98 96 86 Respiratory 24 18 24 Rate Blood Pressure 151/65 H 148/70 H 150/61 H O2 Saturation 93 93 94 0422/20 04/22/20 13:00 13:30 Temperature 38.2 C H Heart Rate 88 88 Respiratory 20 20 Rate Blood Pressure 157/74 H 158/75 H O2 Saturation 98 93 Oxygen O2 Source Room air - Labs Labs: Laboratory Tests 10/12/19 10/12/19 10/12/19 10:28 10:55 10:55 WBC 6.3 RBC 3.12 L Hgb 8.0 L Hct 25.9 L MCV 83.0 MCH 25.6 L MCHC 30.9 L RDW 17.6 H Plt Count 79 L MPV 12.0 H Neut # (Auto) 5.3 Lymph # (Auto) 0.3 L [place] # (Auto) 0.7 Eos # (Auto) 0.0 Baso # (Auto) 0.0 Absolute Nucleated RBC 0.00 Nucleated RBC % 0.0 PT 15.6 H INR 1.4 H APTT 32.3 Sodium Potassium Chloride Carbon Dioxide Anion Gap BUN Creatinine Estimated GFR (MDRD) Glucose Lactic Acid Calcium Total Bilirubin AST ALT Alkaline Phosphatase B-Natriuretic Peptide Total Protein Albumin Globulin Albumin/Globulin Ratio Lipase Influenza A (Rapid) Negative Influenza B (Rapid) Negative 10/12/19 10/12/19 10/12/19 10:55 10:55 10:55 WBC RBC Hgb Hct MCV MCH MCHC RDW Plt Count MPV Neut # (Auto) Lymph # (Auto) [place] # (Auto) Eos # (Auto) Baso # (Auto) Absolute Nucleated RBC Nucleated RBC % PT INR APTT Sodium 136 Potassium 4.9 Chloride 99 L Carbon Dioxide 21 Anion Gap 16.0 H BUN 120 H* Creatinine 12.8 H* Estimated GFR (MDRD) 3 L Glucose 106 H Lactic Acid 1.2 Calcium 8.2 L Total Bilirubin 1.4 H AST 105 H ALT 41 Alkaline Phosphatase 117 B-Natriuretic Peptide 908 H Total Protein 6.1 L Albumin 2.9 L Globulin 3.2 Albumin/Globulin Ratio 0.9 L Lipase 74 H Influenza A (Rapid) Influenza B (Rapid) - Rads (name of study) Chest x-ray Radiology: Prelim report reviewed, EMP read contemporaneously, See rad report (No acute disease) PD MEDICAL DECISION MAKING - ED course Complexity details: reviewed results, re-evaluated patient, considered differential, d/w patient, d/w case consultant ED course: 58-year-old female presents the emergency department with a fever, 39 6. She is also found to be significantly uremic, BUN of 120. Creatinine is 12, baseline is around 4-6. Baseline BUN is around 40. Coronavirus testing was also performed, but is not yet available. Influenza swabs are negative. I discussed the case with the slot machine key person service rig operator Dr. Nolan, for her service rig operator Dr. Hogan, who recommends Transfer to [facility] in [place] and admit to the hospitalist. Patient will need urgent dialysis given altered mental status and uremia. Discussed the case with Dr. Trujillo, hospitalist who graciously accepts in transfer to [facility] in [place]. COBRA forms completed. 1422 This document was made in part using voice recognition software. While efforts are made to proofread this document, sound alike and grammatical errors may occ ur. Patient is approximately 91 to 93% on room air lying in bed, when she starts to move she drops to approximately 88 to 89% on room air. She does not make urine. Departure - Departure Disposition: 02 Transfer Acute Care Hosp Clinical Impression: Uremia, Anasarca Altered mental status Qualifiers: Altered mental status type: unspecified Qualified Code(s): R41.82 - Altered mental status, unspecified Fever Qualifiers: Fever type: unspecified Qualified Code(s): R50.9 - Fever, unspecified Condition: Stable
--- NOTE | 2019-10-12 10:48 | XRAY Report ---
Reason: fever, cough Procedure Date: 10/12/2019 Accession Number: [id number] / [id number] Procedure: XR - Chest 1 View X-Ray CPT Code: 72263 Final Report FULL RESULT: EXAM: CHEST RADIOGRAPHY EXAM DATE: 10/12/2019 10:40 AM. CLINICAL HISTORY: Fever, cough. COMPARISON: CHEST 2 VIEW 09/14/2018 4:10 PM. TECHNIQUE: 1 view. FINDINGS: Lungs/Pleura: No focal opacities evident. No pleural effusion. No pneumothorax. Mediastinum: There is mild cardiac enlargement. The mediastinum appears otherwise unremarkable. Other: None. IMPRESSION: No acute pathology. RADIA
[2019-10-12 11:18] LABS: BASOPHILS % (AUTO) 0.3 %; LYMPHOCYTES # (AUTO) 0.3 10^3/uL (1.5-3.5); LYMPHOCYTES % (AUTO) 4.6 %; MEAN CORPUSCULAR HEMOGLOBIN 25.6 pg (27.0-31.0); MEAN CORPUSCULAR HGB CONC 30.9 g/dL (32.0-36.0); MONOCYTES # (AUTO) 0.7 10^3/uL (0.0-1.0); MONOCYTES % (AUTO) 10.8 %; NEUTROPHILS # (AUTO) 5.3 10^3/uL (1.5-6.6); NEUTROPHILS % (AUTO) 83.3 %; PLT - PLATELET COUNT 79 10^3/uL (130-450); RED BLOOD COUNT 3.12 10^6/uL (4.20-5.40); RED CELL DISTRIBUTION WIDTH 17.6 % (12.0-15.0); WHITE BLOOD COUNT 6.3 x10^3/uL (4.8-10.8)
[2019-10-12 11:24] LABS: INR 1.4 (0.8-1.2); PT - PROTHROMBIN TIME 15.6 secs (9.9-12.6)
[2019-10-12 11:31] LABS: PARTIAL THROMBOPLASTIN TIME 32.3 secs (24.9-33.3)
[2019-10-12 11:51] LABS: ALBUMIN 2.9 g/dL (3.2-5.5); ALBUMIN/GLOBULIN RATIO 0.9 (1.0-2.2); BILIRUBIN,TOTAL 1.4 mg/dL (0.2-1.0); CALCIUM 8.2 mg/dL (8.5-10.3); TOTAL PROTEIN 6.1 g/dL (6.7-8.2)
[2019-10-12 11:54] LABS: CREATININE 12.8 mg/dL (0.4-1.0)
[2019-10-12] MEDS ORDERED: oxyCODONE 5 MG TABLET PO STA (15:35)
[2019-10-12 17:20] VITALS: BP 166/61
== END 2019-10-12 17:13 | disposition short-term general hospital (02) ==
LOC: ED 09:40
DX: E11.22 Type 2 diabetes mellitus with diabetic chronic kidney disease (principal); N18.6 End stage renal disease; Z99.2 Dependence on renal dialysis; R60.1 Generalized edema; R41.82 Altered mental status, unspecified; R50.9 Fever, unspecified; I13.11 Hypertensive heart and chronic kidney disease without heart failure, with stage 5 chronic kidney disease, or end stage renal disease; I50.9 Heart failure, unspecified; E78.00 Pure hypercholesterolemia, unspecified; E11.51 Type 2 diabetes mellitus with diabetic peripheral angiopathy without gangrene; I25.119 Atherosclerotic heart disease of native coronary artery with unspecified angina pectoris; I49.9 Cardiac arrhythmia, unspecified; G47.30 Sleep apnea, unspecified; K74.60 Unspecified cirrhosis of liver; K21.9 Gastro-esophageal reflux disease without esophagitis; H54.7 Unspecified visual loss; F43.10 Post-traumatic stress disorder, unspecified; F41.0 Panic disorder [episodic paroxysmal anxiety]; G89.29 Other chronic pain; M54.9 Dorsalgia, unspecified; M79.7 Fibromyalgia; M19.90 Unspecified osteoarthritis, unspecified site; Z79.4 Long term (current) use of insulin; Z79.82 Long term (current) use of aspirin; Z95.5 Presence of coronary angioplasty implant and graft; Z85.828 Personal history of other malignant neoplasm of skin; I25.2 Old myocardial infarction
CPT/HCPCS: 36415; 71045; 80053; 83605; 83690; 83880; 85025; 85610; 85730; 87040; 87077; 87181; 87275; 87276; 99283; 99285; A9270; U0004; 81599

== ENCOUNTER 2020-01-09 12:02 | Outpatient (CLI) | payer MEDICARE, MEDICAID | END 2020-01-09 12:03 | disposition short-term general hospital (02) | LOC: EMS 12:02 | PROVIDERS: ATTEND Surgery | DX: R53.1 Weakness (principal); R68.83 Chills (without fever); R41.0 Disorientation, unspecified; Z99.2 Dependence on renal dialysis | CPT/HCPCS: A0425; A0429 ==

== ENCOUNTER 2020-02-01 17:40 | Outpatient (CLI) | payer MEDICARE, MEDICAID ==
[2020-02-01 18:30] LABS: BASOPHILS % (AUTO) 1.1 %; EOSINOPHILS % (AUTO) 3.2 %; LYMPHOCYTES % (AUTO) 22.2 %; MEAN CORPUSCULAR HEMOGLOBIN 27.9 pg (27.0-31.0); MEAN CORPUSCULAR HGB CONC 30.3 g/dL (32.0-36.0); MEAN CORPUSCULAR VOLUME 92.1 fL (81.0-99.0); MEAN PLATELET VOLUME 11.3 fL (7.9-10.8); MONOCYTES % (AUTO) 8.6 %; NEUTROPHILS % (AUTO) 64.9 %; PLT - PLATELET COUNT 84 10^3/uL (130-450); RED BLOOD COUNT 2.29 10^6/uL (4.20-5.40); RED CELL DISTRIBUTION WIDTH 16.7 % (12.0-15.0)
[2020-02-01 18:40] LABS: ALBUMIN 2.8 g/dL (3.2-5.5); ALKALINE PHOSPHATASE 127 IU/L (42-121); ALT ALANINE AMINOTRANSFERASE 24 IU/L (10-60); AST ASPARTATE AMINOTRANSFERASE 31 IU/L (10-42); BILIRUBIN,TOTAL 0.6 mg/dL (0.2-1.0); BUN - BLOOD UREA NITROGEN 23 mg/dL (6-20); CALCIUM 8.5 mg/dL (8.5-10.3); CARBON DIOXIDE - CO2 31 mmol/L (21-32); CHLORIDE 93 mmol/L (101-111); CHOL/HDL RATIO 2.9 (<4.4); CHOLESTEROL 102 mg/dL; CREATININE 3.6 mg/dL (0.4-1.0); GLUCOSE 132 mg/dL (70-100); HDL CHOLESTEROL 35 mg/dL; LDL CHOLESTEROL,CALCULATED 37 mg/dL; LDL/HDL RATIO 1.1 (<4.4); SODIUM 137 mmol/L (135-145); TOTAL PROTEIN 5.7 g/dL (6.7-8.2); VLDL CHOLESTEROL 30 mg/dL
[2020-02-01 18:43] LABS: HGB - HEMOGLOBIN 6.4 g/dL (12.0-16.0); WHITE BLOOD COUNT 1.9 x10^3/uL (4.8-10.8)
[2020-02-01 18:44] LABS: ABNORMAL LYMPHS % (MANUAL) 0 %
[2020-02-01 19:44] LABS: BAND NEUTROPHILS % (MANUAL) 1 %; DIFFERENTIAL COMMENT MANUAL DIFFERENTIAL; LYMPHOCYTES # (MANUAL) 0.6 10^3/uL (1.5-3.5); LYMPHOCYTES % (MANUAL) 31 %; MONOCYTES # (MANUAL) 0.2 10^3/uL (0.0-1.0); PLATELET ESTIMATE, MANUAL DECREASED (<130,000) (NORMAL); PLATELET MORPHOLOGY NORMAL APPEARANCE (NORMAL)
[2020-02-01 20:30] LABS: HB2 TOTAL 6.6 g/dL; HEMOGLOBIN A1C 0.13 g/dL
== END 2020-02-01 17:41 | disposition home or self-care (01) ==
LOC: LAB 17:40
PROVIDERS: ATTEND Family Medicine
DX: A41.50 Gram-negative sepsis, unspecified (principal); E11.9 Type 2 diabetes mellitus without complications; K31.819 Angiodysplasia of stomach and duodenum without bleeding
CPT/HCPCS: 36415; 80053; 80061; 82985; 83036; 83721; 85025

== ENCOUNTER 2020-02-08 13:41 | Outpatient (CLI) | payer MEDICARE, MEDICAID ==
[2020-02-08 14:09] LABS: EOSINOPHILS # (AUTO) 0.1 10^3/uL (0.0-0.7); LYMPHOCYTES # (AUTO) 0.4 10^3/uL (1.5-3.5); LYMPHOCYTES % (AUTO) 19.4 %; MEAN CORPUSCULAR HEMOGLOBIN 28.3 pg (27.0-31.0); MEAN CORPUSCULAR HGB CONC 31.2 g/dL (32.0-36.0); MEAN CORPUSCULAR VOLUME 90.6 fL (81.0-99.0); MEAN PLATELET VOLUME 11.1 fL (7.9-10.8); MONOCYTES # (AUTO) 0.2 10^3/uL (0.0-1.0); MONOCYTES % (AUTO) 11.9 %; NEUTROPHILS # (AUTO) 1.3 10^3/uL (1.5-6.6); NEUTROPHILS % (AUTO) 64.7 %; PLT - PLATELET COUNT 76 10^3/uL (130-450); RED BLOOD COUNT 2.44 10^6/uL (4.20-5.40); RED CELL DISTRIBUTION WIDTH 15.8 % (12.0-15.0)
[2020-02-08 14:32] LABS: HGB - HEMOGLOBIN 6.9 g/dL (12.0-16.0)
[2020-02-08 14:40] LABS: RBC MORPHOLOGY (MULTIPLE) 3+ ANISOCYTOSIS (NORMAL)
== END 2020-02-08 13:42 | disposition home or self-care (01) ==
LOC: LAB 13:41
PROVIDERS: ATTEND Family Medicine
DX: D61.818 Other pancytopenia (principal)
CPT/HCPCS: 36415; 85025

== ENCOUNTER 2020-02-08 17:04 | Outpatient (CLI) | payer MEDICARE, MEDICAID | END 2020-02-08 23:59 | disposition short-term general hospital (02) | LOC: EMS 17:04 | PROVIDERS: ATTEND Surgery | DX: K92.1 Melena (principal); R79.89 Other specified abnormal findings of blood chemistry | CPT/HCPCS: A0425; A0429 ==

== ENCOUNTER 2020-05-26 19:28 | Outpatient (CLI) | payer MEDICARE, MEDICAID | END 2020-05-26 19:29 | disposition critical access hospital (66) | LOC: EMS 19:28 | PROVIDERS: ATTEND Surgery | DX: R50.9 Fever, unspecified (principal); J34.89 Other specified disorders of nose and nasal sinuses | CPT/HCPCS: A0425; A0429 ==

== ENCOUNTER 2020-05-26 19:35 | Emergency (ER) | payer MEDICARE, MEDICAID ==
[2020-05-26] MEDS ORDERED: ACETAMINOPHEN 325 MG TABLET PO STA (19:42)
[2020-05-26] MEDS ORDERED: oxyCODONE 5 MG TABLET PO STA (19:42)
--- NOTE | 2020-05-26 19:44 | ED Physician Documentation ---
PD HPI FEVER - Stated complaint Stated Complaint: FEVER - History obtained from History obtained from: Patient - Additional information Additional information: 59-year-old woman with history of diabetes and end-stage renal disease who is dialyzed Thursday and Thursday, her assistant secretary is in [employer]. She developed a fever abruptly this afternoon at 430 associated with runny nose and chills and myalgias. She denies cough, shortness of breath, sore throat, abdominal pain. She does have ongoing bilateral hand pain, etiology unknown but this is not acute. She was dialyzed yesterday without significant variations from her normal routine. No known sick contacts. Review of Systems Ten Systems: 10 systems reviewed and negative Constitutional: reports: Fever, Chills, Fatigue Nose: reports: Rhinorrhea / runny nose Throat: denies: Sore throat Cardiac: denies: Chest pain / pressure, Palpitations Respiratory: denies: Dyspnea, Cough PD PAST MEDICAL HISTORY - Past Medical History Cardiovascular: Congestive heart failure, Hypertension, High cholesterol, Coronary artery disease, Peripheral Vascular Disease, Angina, [place], Arrhythmia, Other Respiratory: Pneumonia, Shortness of breath, Sleep apnea, CPAP use, Other Endocrine/Autoimmune: Type 2 diabetes, Other GI: GERD, GI bleed, Ulcers, Cirrhosis, Cholelithiasis, Other : Dialysis, Renal insuffiency, Other HEENT: Chronic vision loss, Other Psych: Depression, Anxiety, Panic attacks, Post traumatic stress disorder Musculoskeletal: Osteoarthritis, Fibromyalgia, Chronic back pain, Other Derm: None - Past Surgical History Past Surgical History: Yes General: EGD, Other Ortho: Carpal Tunnel surgery Cardiovascular: Coronary stent, Cardiac catheterization Neuro: Other HEENT: Myringotomy (tubes) Derm: Skin cancer surgery, Other - Present Medications Home Medications: Ambulatory Orders Medication Instructions Recorded Confirmed Dexlansoprazole [Dexilant] 60 mg PO DAILY 11/08/12 05/23/20 Ropinirole HCl [Requip Xl] 3 mg PO QPM 11/08/12 05/23/20 Vitamin B Complex [B Complete] 2,000 units PO QPM 11/08/12 05/23/20 Nitroglycerin 0.4 mg PO Q5MIN PRN 12/28/13 05/23/20 Atorvastatin Calcium [Lipitor] 40 mg PO DAILY 10/09/14 05/23/20 PARoxetine HCl [Paxil] 40 mg PO DAILY 03/25/16 05/23/20 Insulin Glargine [Lantus Solostar] 25 unit SQ QDBREAKFAST 09/17/18 05/23/20 Levetiracetam [Keppra] 1,000 mg PO DAILY 09/17/18 05/23/20 Nystatin 1 each MC DAILY 09/17/18 05/23/20 Pregabalin [Lyrica] 75 - 150 mg PO DAILY 09/17/18 05/23/20 hydrOXYzine HCL [Hydroxyzine HCl] 12.5 mg PO QID PRN 09/17/18 05/23/20 Cinacalcet HCl [Sensipar] 30 mg PO DAILY 10/29/18 05/23/20 L. Acidophilus/L. Rhamnosus 1 each PO DAILY 10/29/18 05/23/20 [Probiotic 15 Billion Cell Cap] oxyCODONE [Roxicodone] 5 mg PO TID 10/29/18 05/23/20 Amoxicillin 1 BID 11/02/18 Insulin Aspart Prot/Insuln Asp 15 TID 11/02/18 [Novolog Mix 70-30 Flexpen Syrn] - Allergies Allergies/Adverse Reactions: Allergies Allergy/AdvReac Type Severity Reaction Status Date / Time amoxicillin trihydrate * Allergy Severe diarrhea Verified 05/24/20 12:20 [From Augmentin] benazepril HCl * Allergy Severe Dizziness Verified 05/24/20 12:20 [From Lotensin] cephalexin monohydrate * Allergy Severe bloody Verified 05/24/20 12:20 [From Keflex] diarrhea iodine Allergy Severe Hives Verified 05/24/20 12:20 metoclopramide Allergy Severe Hives Verified 05/24/20 12:20 potassium clavulanate * Allergy Severe diarrhea Verified 05/24/20 12:20 [From Augmentin] tetracycline [Tetracycline] Allergy Severe RUINED Verified 05/24/20 12:20 TEETH ENAMEL povidone-iodine Allergy Intermediate Itching Verified 05/24/20 12:20 [From Betadine] soap * [From Betadine] Allergy Intermediate Itching Verified 05/24/20 12:20 Sulfa (Sulfonamide Allergy Intermediate Hallucinati Verified 05/24/20 12:20 Antibiotics) ons cigarette smoke Allergy Respiratory Verified 05/24/20 12:20 perfume Allergy Respiratory Verified 05/24/20 12:20 strawberry Allergy Hives Verified 05/24/20 12:20 iron sucrose complex * AdvReac Intermediate diarrhea Verified 05/24/20 12:20 [From Venofer] metoclopramide HCl * AdvReac Intermediate Emesis Verified 05/24/20 12:20 [From Reglan] nickel [Nickel] AdvReac Intermediate Rash Verified 05/24/20 12:20 adhesive AdvReac Mild Rash Verified 05/24/20 12:20 adhesive tape AdvReac Mild Rash Verified 05/24/20 12:20 - Social History Does the pt smoke?: No Smoking Status: Never smoker Does the pt drink ETOH?: No Does the pt have substance abuse?: No - Immunizations Immunizations are current?: Yes - POLST Patient has POLST: No PD ED PE NORMAL - Vitals Vital signs reviewed: Yes - General General: Alert and oriented X 3, No acute distress - Neck Neck: Supple, no meningeal sign, No bony TTP - Cardiac Cardiac: RRR, No murmur - Respiratory Respiratory: No respiratory distress, Clear bilaterally - Abdomen Abdomen: Non tender - Back Back: No CVA TTP, No spinal TTP - Derm Derm: Normal color, Warm and dry - Extremities Extremities: Other (There is an old dialysis fistula in the left arm which is no longer functional, there is an active dialysis fistula in the right arm, neither have signs of infection. No lower extremity cellulitis. Her hands are edematous and tender. She says this is not acute.) - Neuro Neuro: Alert and oriented X 3, Normal speech Results - Vitals Vitals: Vital Signs - 24 hr 05/26/20 05/26/20 19:48 21:12 Temperature 39.6 C H 38.9 C H Heart Rate 92 Respiratory 20 Rate Blood Pressure 126/53 L O2 Saturation 92 Oxygen O2 Source Room air - Labs Labs: Laboratory Tests 05/26/20 05/26/20 05/26/20 20:05 20:20 20:20 WBC 4.9 RBC 3.01 L Hgb 8.5 L Hct 26.8 L MCV 89.0 MCH 28.2 MCHC 31.7 L RDW 17.1 H Plt Count 93 L MPV 11.9 H Neut # (Auto) 4.0 Lymph # (Auto) 0.4 L [place] # (Auto) 0.5 Eos # (Auto) 0.0 Baso # (Auto) 0.0 Absolute Nucleated RBC 0.00 Nucleated RBC % 0.0 Sodium 142 Potassium 5.0 Chloride 101 Carbon Dioxide 27 Anion Gap 14.0 H BUN 44 H Creatinine 5.9 H Estimated GFR (MDRD) 7 L Glucose 118 H Lactic Acid Calcium 9.1 Total Bilirubin 1.3 H AST 36 ALT 28 Alkaline Phosphatase 131 H Total Protein 6.0 L Albumin 3.1 L Globulin 2.9 Albumin/Globulin Ratio 1.1 Nasal Adenovirus (PCR) NOT DETECTED Nasal B. parapertussis DNA (PCR) NOT DETECTED Nasal Coronavir 229E PCR NOT DETECTED Nasal Coronavir HKU1 PCR NOT DETECTED Nasal Coronavir NL63 PCR NOT DETECTED Nasal Coronavir OC43 PCR NOT DETECTED Nasal Enterovir/Rhinovir PCR NOT DETECTED Nasal Influenza B PCR NOT DETECTED Nasal Influenza A PCR NOT DETECTED Nasal Parainfluen 1 PCR NOT DETECTED Nasal Parainfluen 2 PCR NOT DETECTED Nasal Parainfluen 3 PCR NOT DETECTED Nasal Parainfluen 4 PCR NOT DETECTED Nasal RSV (PCR) NOT DETECTED Nasal B.pertussis DNA PCR NOT DETECTED Nasal C.pneumoniae (PCR) NOT DETECTED Miguel A Human Metapneumo PCR NOT DETECTED Nasal M.pneumoniae (PCR) NOT DETECTED Nasal SARS-CoV-2 (PCR) NOT DETECTED 05/26/20 20:20 WBC RBC Hgb Hct MCV MCH MCHC RDW Plt Count MPV Neut # (Auto) Lymph # (Auto) [place] # (Auto) Eos # (Auto) Baso # (Auto) Absolute Nucleated RBC Nucleated RBC % Sodium Potassium Chloride Carbon Dioxide Anion Gap BUN Creatinine Estimated GFR (MDRD) Glucose Lactic Acid 1.5 Calcium Total Bilirubin AST ALT Alkaline Phosphatase Total Protein Albumin Globulin Albumin/Globulin Ratio Nasal Adenovirus (PCR) Nasal B. parapertussis DNA (PCR) Nasal Coronavir 229E PCR Nasal Coronavir HKU1 PCR Nasal Coronavir NL63 PCR Nasal Coronavir OC43 PCR Nasal Enterovir/Rhinovir PCR Nasal Influenza B PCR Nasal Influenza A PCR Nasal Parainfluen 1 PCR Nasal Parainfluen 2 PCR Nasal Parainfluen 3 PCR Nasal Parainfluen 4 PCR Nasal RSV (PCR) Nasal B.pertussis DNA PCR Nasal C.pneumoniae (PCR) Miguel A Human Metapneumo PCR Nasal M.pneumoniae (PCR) Nasal SARS-CoV-2 (PCR) PD MEDICAL DECISION MAKING - ED course ED course: 59-year-old woman on dialysis presents with an acute fever and runny nose. No abdominal pain or tenderness. No cough or shortness of breath. She does not make urine. Work-up here demonstrates normal to low white count, unremarkable metabolic panel considering that she is a dialysis patient, clear chest x-ray, and negative respiratory panel including coronavirus. She was administered Tylenol here. She remained nontoxic. She felt safe going home and lives basically right across the street. She understands we will have to call her and she will return immediately if blood cultures are positive but given the other vitals, and other labs I think this is unlikely at this juncture. Departure - Departure Disposition: Home, Self Care Clinical Impression: Fever Qualifiers: Fever type: due to other condition Qualified Code(s): R50.81 - Fever presenting with conditions classified elsewhere Renal failure Qualifiers: Renal failure chronicity: chronic Chronic kidney disease stage: on chronic dialysis Qualified Code(s): N18.6 - End stage renal disease; Z99.2 - Dependence on renal dialysis Condition: Stable Record reviewed to determine appropriate education?: Yes Instructions: ED Fever Unconf Cause Comments: Return if worsening or if not better in about a day. You can take Tylenol, up to 3 times a day per package instructions for the fever. If blood cultures are positive we will call you and you will have to return immediately.
--- NOTE | 2020-05-26 20:10 | XRAY Report ---
PROCEDURE: Chest 1 View X-Ray INDICATIONS: fever TECHNIQUE: One view of the chest was acquired. COMPARISON: 10/12/2019 FINDINGS: Surgical changes and devices: None. Lungs and pleura: No pleural effusions or pneumothorax. Lungs are clear. Mediastinum: Mediastinal contours appear normal. Heart size is normal. Bones and chest wall: No suspicious bony lesions. Overlying soft tissues appear unremarkable. IMPRESSION: No acute process. Reviewed by: Zachary Titus MD on 05/26/2020 8:08 PM [facility] Approved by: Zachary Titus MD on 05/26/2020 8:08 PM [facility] Station ID: [id number]
[2020-05-26 20:29] LABS: BASOPHILS % (AUTO) 0.4 %; EOSINOPHILS % (AUTO) 0.4 %; HGB - HEMOGLOBIN 8.5 g/dL (12.0-16.0); LYMPHOCYTES # (AUTO) 0.4 10^3/uL (1.5-3.5); LYMPHOCYTES % (AUTO) 7.3 %; MEAN CORPUSCULAR HEMOGLOBIN 28.2 pg (27.0-31.0); MEAN CORPUSCULAR HGB CONC 31.7 g/dL (32.0-36.0); MEAN PLATELET VOLUME 11.9 fL (7.9-10.8); MONOCYTES # (AUTO) 0.5 10^3/uL (0.0-1.0); MONOCYTES % (AUTO) 10.3 %; NEUTROPHILS % (AUTO) 81.2 %; PLT - PLATELET COUNT 93 10^3/uL (130-450); RED BLOOD COUNT 3.01 10^6/uL (4.20-5.40); RED CELL DISTRIBUTION WIDTH 17.1 % (12.0-15.0); WHITE BLOOD COUNT 4.9 x10^3/uL (4.8-10.8)
[2020-05-26 20:42] LABS: ALBUMIN 3.1 g/dL (3.2-5.5); ALBUMIN/GLOBULIN RATIO 1.1 (1.0-2.2); BILIRUBIN,TOTAL 1.3 mg/dL (0.2-1.0); CALCIUM 9.1 mg/dL (8.5-10.3); CREATININE 5.9 mg/dL (0.4-1.0)
[2020-05-26 21:05] LABS: C. PNEUMONIAE- RESP PCR PANEL NOT DETECTED
[2020-05-26 21:39] VITALS: BP 107/58
== END 2020-05-26 21:53 | disposition home or self-care (01) ==
LOC: ED 19:35
DX: R50.9 Fever, unspecified (principal); R09.89 Other specified symptoms and signs involving the circulatory and respiratory systems; Z20.828 Contact with and (suspected) exposure to other viral communicable diseases; I12.0 Hypertensive chronic kidney disease with stage 5 chronic kidney disease or end stage renal disease; E11.22 Type 2 diabetes mellitus with diabetic chronic kidney disease; N18.6 End stage renal disease; Z99.2 Dependence on renal dialysis; E11.51 Type 2 diabetes mellitus with diabetic peripheral angiopathy without gangrene; Z79.4 Long term (current) use of insulin; M79.642 Pain in left hand; M79.641 Pain in right hand; R60.0 Localized edema
CPT/HCPCS: 36415; 71045; 80053; 83605; 85025; 87040; 87631; 99284; A9270; 0202U

== ENCOUNTER 2020-05-28 15:06 | Outpatient (CLI) | payer MEDICARE, MEDICAID | END 2020-05-28 15:07 | disposition short-term general hospital (02) | LOC: EMS 15:06 | PROVIDERS: ATTEND Surgery | DX: R53.1 Weakness (principal) | CPT/HCPCS: A0425; A0429 ==

== ENCOUNTER 2020-08-27 14:46 | Outpatient (CLI) | payer MEDICARE, MEDICAID ==
[2020-08-27 20:46] LABS: ESTIMATED AVERAGE GLUCOSE 91 mg/dL (70-100); HEMOGLOBIN A1c% 4.8 % (4.27-6.07)
== END 2020-08-27 14:47 | disposition home or self-care (01) ==
LOC: LAB 14:46
PROVIDERS: ATTEND Family Medicine
DX: E11.9 Type 2 diabetes mellitus without complications (principal); M25.50 Pain in unspecified joint
CPT/HCPCS: 36415; 82985; 83036; 84550

== ENCOUNTER 2020-09-30 14:30 | Outpatient (CLI) | payer MEDICARE, MEDICAID | END 2020-09-30 14:31 | disposition home or self-care (01) | LOC: LAB 14:30 | PROVIDERS: ATTEND Family Medicine | DX: D61.818 Other pancytopenia (principal) ==

== ENCOUNTER 2020-10-10 07:09 | Outpatient (CLI) | payer MEDICARE, MEDICAID | END 2020-10-10 07:10 | disposition critical access hospital (66) | LOC: EMS 07:09 | DX: S01.81XA Laceration without foreign body of other part of head, initial encounter (principal); W18.2XXA Fall in (into) shower or empty bathtub, initial encounter; Y93.E1 Activity, personal bathing and showering; Y92.002 Bathroom of unspecified non-institutional (private) residence as the place of occurrence of the external cause | CPT/HCPCS: A0425; A0429 ==

== ENCOUNTER 2020-10-10 07:13 | Emergency (ER) | payer MEDICARE, MEDICAID ==
--- NOTE | 2020-10-10 07:40 | ED Physician Documentation ---
History of Present Illness - Stated complaint Stated Complaint: GLF/HEAD INURY - Chief complaint Chief Complaint: Trauma Hd/Nk - History obtained from History obtained from: Patient - Additonal information Additional information: Patient is brought to the emergency department chief complaint of fall in shower with head injury. Patient states that she just slipped and lurched forward, hitting her head on the wall of the shower. Patient states she struck her right hand, as well, but does not feel like anything is majorly injured. She denies loss of consciousness. No rib or hip pain. No extremity pain. Patient does not take any anticoagulants. She is supposed to be at dialysis. No other complaints at this time. Review of Systems Ten Systems: 10 systems reviewed and negative Constitutional: reports: Reviewed and negative Eyes: reports: Reviewed and negative Ears: reports: Reviewed and negative Nose: reports: Reviewed and negative Throat: reports: Reviewed and negative Cardiac: reports: Reviewed and negative Respiratory: reports: Reviewed and negative GI: reports: Reviewed and negative : reports: Reviewed and negative Skin: reports: Reviewed and negative Musculoskeletal: reports: Reviewed and negative Neurologic: reports: Head injury. denies: LOC Psychiatric: reports: Reviewed and negative Endocrine: reports: Reviewed and negative Immunocompromised: reports: Reviewed and negative PD PAST MEDICAL HISTORY - Past Medical History Cardiovascular: Congestive heart failure, Hypertension, High cholesterol, Coronary artery disease, Peripheral Vascular Disease, Angina, DC, Arrhythmia, Other Respiratory: Pneumonia, Shortness of breath, Sleep apnea, CPAP use, Other Endocrine/Autoimmune: Type 2 diabetes, Other GI: GERD, GI bleed, Ulcers, Cirrhosis, Cholelithiasis, Other : Dialysis, Renal insuffiency, Other HEENT: Chronic vision loss, Other Psych: Depression, Anxiety, Panic attacks, Post traumatic stress disorder Musculoskeletal: Osteoarthritis, Fibromyalgia, Chronic back pain, Other Derm: None - Past Surgical History Past Surgical History: Yes General: EGD, Other Ortho: Carpal Tunnel surgery Cardiovascular: Coronary stent, Cardiac catheterization Neuro: Other HEENT: Myringotomy (tubes) Derm: Skin cancer surgery, Other - Present Medications Home Medications: Ambulatory Orders Medication Instructions Recorded Confirmed Dexlansoprazole [Dexilant] 60 mg PO DAILY 11/08/12 10/10/20 Ropinirole HCl [Requip Xl] 3 mg PO QPM 11/08/12 10/10/20 Vitamin B Complex [B Complete] 2,000 units PO QPM 11/08/12 10/10/20 Nitroglycerin 0.4 mg PO Q5MIN PRN 12/28/13 10/10/20 Atorvastatin Calcium [Lipitor] 40 mg PO DAILY 10/09/14 10/10/20 PARoxetine HCl [Paxil] 40 mg PO DAILY 03/25/16 10/10/20 Insulin Glargine [Lantus Solostar] 25 unit SQ QDBREAKFAST 09/17/18 10/10/20 Levetiracetam [Keppra] 1,000 mg PO DAILY 09/17/18 10/10/20 Nystatin 1 each MC DAILY 09/17/18 10/10/20 Pregabalin [Lyrica] 75 - 150 mg PO DAILY 09/17/18 10/10/20 hydrOXYzine HCL [Hydroxyzine HCl] 12.5 mg PO QID PRN 09/17/18 10/10/20 Cinacalcet HCl [Sensipar] 30 mg PO DAILY 10/29/18 10/10/20 L. Acidophilus/L. Rhamnosus 1 each PO DAILY 10/29/18 10/10/20 [Probiotic 15 Billion Cell Cap] Insulin Aspart Prot/Insuln Asp 15 units SQ TID 11/02/18 10/10/20 [Novolog Mix 70-30 Flexpen Syrn] - Allergies Allergies/Adverse Reactions: Allergies Allergy/AdvReac Type Severity Reaction Status Date / Time amoxicillin trihydrate * Allergy Severe diarrhea Verified 10/10/20 07:26 [From Augmentin] benazepril HCl * Allergy Severe Dizziness Verified 10/10/20 07:26 [From Lotensin] cephalexin monohydrate * Allergy Severe bloody Verified 10/10/20 07:26 [From Keflex] diarrhea iodine Allergy Severe Hives Verified 10/10/20 07:26 metoclopramide Allergy Severe Hives Verified 10/10/20 07:26 potassium clavulanate * Allergy Severe diarrhea Verified 10/10/20 07:26 [From Augmentin] tetracycline [Tetracycline] Allergy Severe RUINED Verified 10/10/20 07:26 TEETH ENAMEL povidone-iodine Allergy Intermediate Itching Verified 10/10/20 07:26 [From Betadine] soap * [From Betadine] Allergy Intermediate Itching Verified 10/10/20 07:26 Sulfa (Sulfonamide Allergy Intermediate Hallucinati Verified 10/10/20 07:26 Antibiotics) ons cigarette smoke Allergy Respiratory Verified 10/10/20 07:26 perfume Allergy Respiratory Verified 10/10/20 07:26 strawberry Allergy Hives Verified 10/10/20 07:26 iron sucrose complex * AdvReac Intermediate diarrhea Verified 10/10/20 07:26 [From Venofer] metoclopramide HCl * AdvReac Intermediate Emesis Verified 10/10/20 07:26 [From Reglan] nickel [Nickel] AdvReac Intermediate Rash Verified 10/10/20 07:26 adhesive AdvReac Mild Rash Verified 10/10/20 07:26 adhesive tape AdvReac Mild Rash Verified 10/10/20 07:26 - Social History Does the pt smoke?: No Smoking Status: Never smoker Does the pt drink ETOH?: No Does the pt have substance abuse?: No - Immunizations Immunizations are current?: Yes - POLST Patient has POLST: No PD ED PE NORMAL - Vitals Vital signs reviewed: Yes - General General: Alert and oriented X 3, No acute distress, Well developed/nourished - HEENT HEENT: PERRL, EOMI, Moist mucous membranes, Other (Swelling and contusion involving right superolateral periorbital area over the eyebrow. 4mm skin tear with bleeding controlled.) - Neck Neck: Supple, no meningeal sign - Cardiac Cardiac: RRR, No murmur, Strong equal pulses - Respiratory Respiratory: No respiratory distress, Clear bilaterally - Abdomen Abdomen: Soft, Non tender, Other (Obese abdomen.) - Back Back: No CVA TTP, No spinal TTP - Derm Derm: Normal color, Warm and dry, No rash, Other (Facial laceration as above. 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 Results - Vitals Vitals: Vital Signs - 24 hr 10/10/20 10/10/20 07:21 07:40 Temperature 36.3 C L Heart Rate 72 74 Respiratory 16 16 Rate Blood Pressure 109/51 L 91/44 L O2 Saturation 97 98 Oxygen O2 Source Room air PD MEDICAL DECISION MAKING - ED course Complexity details: reviewed results, re-evaluated patient, considered differential, d/w patient ED course: The patient was worked up with CT scans of the head and cervical spine. Departure - Departure Disposition: 01 Home, Self Care Clinical Impression: Closed head injury Qualifiers: Encounter type: initial encounter Qualified Code(s): S09.90XA - Unspecified injury of head, initial encounter Condition: Stable Instructions: ED Head Injury Closed Comments: Your CT scans look good. Please continue your plans to follow-up for dialysis tomorrow to make up for the session you missed today.
--- NOTE | 2020-10-10 08:29 | CT Report ---
PROCEDURE: HEAD WO INDICATIONS: fall/head injury TECHNIQUE: Noncontrast 4.5 mm thick angled axial sections acquired from the foramen magnum to the vertex. For r adiation dose reduction, the following was used: automated exposure control, adjustment of mA and/or kV according to patient size. COMPARISON: None. FINDINGS: Image quality: Excellent. CSF spaces: Basal cisterns are patent. Chronic bilateral subdural hygromas. Ventricles are normal i n size and shape. Brain: No midline shift. Incidental subcentimeter fat density along the anterior falx is unchanged. No intracranial masses or hemorrhage. Davison-white matter interface is normal. Skull and face: Postsurgical changes related to bitemporal craniotomies.. Sinuses: Visualized sinuses and mastoids are clear. IMPRESSION: No acute intracranial process. Reviewed by: Misbah Milton MD on 10/10/2020 8:28 AM PDT Approved by: Misbah Milton MD on 10/10/2020 8:28 AM PDT Station ID: [id number]
--- NOTE | 2020-10-10 08:38 | CT Report ---
PROCEDURE: CERVICAL SPINE WO INDICATIONS: fall/blow to head TECHNIQUE: Noncontrast 3 mm thick sections acquired from the skull base to the T4 level. Sagittal and coronal r eformats were then constructed. For radiation dose reduction, the following was used: automated exp osure control, adjustment of mA and/or kV according to patient size. COMPARISON: None. FINDINGS: Image quality: Excellent. Bones: No fractures or dislocations. Visualized superior ribs are intact. Severe C5-C6 and C6-C7 d isc degeneration. There is also mild to moderate C7-T1 spondylosis. Scattered multilevel endplate spu rring and diffuse facet arthropathy.Degenerative changes and marginal lucencies at both sternoclavicu lar joints. Mild bilateral maxillary sinus mucosal thickening. IMPRESSION: No fracture. Multilevel spondylosis most pronounced in the mid-lower cervical spine. Degenerative changes as above. Marginal lucencies at the sternoclavicular joints bilaterally raise po ssibility of erosive arthropathy. Minimal bilateral maxillary sinus disease. Reviewed by: Misbah Milton MD on 10/10/2020 8:37 AM PDT Approved by: Misbah Milton MD on 10/10/2020 8:37 AM PDT Station ID: [id number]
[2020-10-10 09:30] VITALS: BP 96/48
== END 2020-10-10 10:30 | disposition home or self-care (01) ==
LOC: EDUNIT# → ED 07:13
DX: S09.90XA Unspecified injury of head, initial encounter (principal); W18.2XXA Fall in (into) shower or empty bathtub, initial encounter; Y93.F1 Activity, caregiving, bathing; E11.22 Type 2 diabetes mellitus with diabetic chronic kidney disease; I13.0 Hypertensive heart and chronic kidney disease with heart failure and stage 1 through stage 4 chronic kidney disease, or unspecified chronic kidney disease; N18.6 End stage renal disease; I50.84 End stage heart failure; Z79.4 Long term (current) use of insulin; Z99.2 Dependence on renal dialysis
CPT/HCPCS: 99282; 99284

== ENCOUNTER 2020-11-22 14:57 | Outpatient (CLI) | payer MEDICARE, MEDICAID ==
--- NOTE | 2020-11-22 16:18 | XRAY Report ---
PROCEDURE: Chest 2 View X-Ray INDICATIONS: SHORTNESS OF BREATH TECHNIQUE: 2 view(s) of the chest. COMPARISON: 05/26/2020 FINDINGS: Surgical changes and devices: None. Lungs and pleura: No pleural effusions or pneumothorax. Lungs are clear. Mediastinum: Mediastinal contours are normal. Heart size is normal. Bones and chest wall: No suspicious bony abnormalities. Soft tissues appear unremarkable. IMPRESSION: No acute cardiopulmonary process demonstrated radiographically. Reviewed by: Harman Fuentes MD on 11/22/2020 4:17 PM PDT Approved by: Harman Fuentes MD on 11/22/2020 4:17 PM PDT Station ID: [id number]
== END 2020-11-22 14:58 | disposition home or self-care (01) ==
LOC: DI 14:57
PROVIDERS: ATTEND Family Medicine
DX: R06.02 Shortness of breath (principal)

== ENCOUNTER 2020-12-07 16:00 | Emergency (ER) | payer MEDICARE, MEDICAID ==
[2020-12-07 16:55] LABS: BASOPHILS % (AUTO) 0.4 %; EOSINOPHILS % (AUTO) 0.8 %; HCT - HEMATOCRIT 20.4 % (37.0-47.0); LYMPHOCYTES # (AUTO) 0.4 10^3/uL (1.5-3.5); LYMPHOCYTES % (AUTO) 8.8 %; MEAN CORPUSCULAR HEMOGLOBIN 26.7 pg (27.0-31.0); MEAN CORPUSCULAR HGB CONC 30.4 g/dL (32.0-36.0); MEAN CORPUSCULAR VOLUME 87.9 fL (81.0-99.0); MEAN PLATELET VOLUME 11.3 fL (7.9-10.8); MONOCYTES # (AUTO) 0.8 10^3/uL (0.0-1.0); MONOCYTES % (AUTO) 16.6 %; NEUTROPHILS # (AUTO) 3.5 10^3/uL (1.5-6.6); PLT - PLATELET COUNT 85 10^3/uL (130-450); RED BLOOD COUNT 2.32 10^6/uL (4.20-5.40); RED CELL DISTRIBUTION WIDTH 17.2 % (12.0-15.0); WHITE BLOOD COUNT 4.8 x10^3/uL (4.8-10.8)
[2020-12-07 17:00] LABS: HGB - HEMOGLOBIN 6.2 g/dL (12.0-16.0)
[2020-12-07 17:11] LABS: ALBUMIN 2.9 g/dL (3.2-5.5); BILIRUBIN,TOTAL 1.1 mg/dL (0.2-1.0); CALCIUM 9.2 mg/dL (8.5-10.3); MAGNESIUM 2.7 mg/dL (1.7-2.8); POTASSIUM 4.8 mmol/L (3.5-5.0); TOTAL PROTEIN 5.9 g/dL (6.7-8.2)
[2020-12-07 17:13] LABS: CREATININE 9.1 mg/dL (0.4-1.0)
--- NOTE | 2020-12-07 19:45 | ED Physician Documentation ---
History of Present Illness - Stated complaint Stated Complaint: WEAKNESS - Chief complaint Chief Complaint: General - History obtained from History obtained from: Patient - History of Present Illness Timing: Today Pain level max: 0 Pain level now: 0 - Additonal information Additional information: Patient is a 60-year-old female who came into the emergency department today for weakness. She is a dialysis patient and is supposed to have dialysis today. She talked to her dialysis nurse to recommend that she come here to be evaluated for blood transfusion. She receives blood transfusions at least once a month. Chronic anemia. She is on iron. She states that she is out of breath when walking across her room. No fevers. No chills. No abdominal pain. No chest pain. She sees Dr. Hogan at the [facility] Review of Systems Ten Systems: 10 systems reviewed and negative Constitutional: denies: Fever, Chills Nose: denies: Rhinorrhea / runny nose, Congestion Cardiac: denies: Chest pain / pressure, Palpitations Respiratory: denies: Cough GI: denies: Abdominal Pain, Nausea, Vomiting, Diarrhea : denies: Dysuria, Frequency, Hesitancy Skin: denies: Rash Musculoskeletal: denies: Neck pain, Back pain Neurologic: denies: Headache PD PAST MEDICAL HISTORY - Past Medical History Past Medical History: Yes Cardiovascular: Congestive heart failure, Hypertension, High cholesterol, Coronary artery disease, Peripheral Vascular Disease, Angina, CT, Arrhythmia, Other Respiratory: Pneumonia, Shortness of breath, Sleep apnea, CPAP use, Other Endocrine/Autoimmune: Type 2 diabetes, Other GI: GERD, GI bleed, Ulcers, Cirrhosis, Cholelithiasis, Other : Dialysis, Renal insuffiency, Other HEENT: Chronic vision loss, Other Psych: Depression, Anxiety, Panic attacks, Post traumatic stress disorder Musculoskeletal: Osteoarthritis, Fibromyalgia, Chronic back pain, Other Derm: None - Past Surgical History Past Surgical History: Yes General: EGD, Other Ortho: Carpal Tunnel surgery Cardiovascular: Coronary stent, Cardiac catheterization Neuro: Other HEENT: Myringotomy (tubes) Derm: Skin cancer surgery, Other - Present Medications Home Medications: Ambulatory Orders Medication Instructions Recorded Confirmed Dexlansoprazole [Dexilant] 60 mg PO DAILY 11/08/12 12/07/20 Vitamin B Complex [B Complete] 2,000 units PO QPM 11/08/12 12/07/20 Nitroglycerin 0.4 mg PO Q5MIN PRN 12/28/13 12/07/20 Atorvastatin Calcium [Lipitor] 40 mg PO DAILY 10/09/14 12/07/20 PARoxetine HCl [Paxil] 40 mg PO DAILY 03/25/16 12/07/20 Nystatin 1 each MC DAILY 09/17/18 12/07/20 Pregabalin [Lyrica] 75 - 150 mg PO DAILY 09/17/18 12/07/20 hydrOXYzine HCL [Hydroxyzine HCl] 12.5 mg PO QID PRN 09/17/18 12/07/20 Cinacalcet HCl [Sensipar] 90 mg PO DAILY 10/29/18 12/07/20 L. Acidophilus/L. Rhamnosus 1 each PO DAILY 10/29/18 12/07/20 [Probiotic 15 Billion Cell Cap] Calcium Acetate [Phoslo] 667 mg PO TID 12/07/20 12/07/20 Lanthanum Carbonate [Fosrenol] 1,500 mg PO TID 12/07/20 12/07/20 Nadolol [Corgard] 10 mg PO DAILY 12/07/20 12/07/20 rifAXIMin [Xifaxan] 550 mg PO BID 12/07/20 12/07/20 - Allergies Allergies/Adverse Reactions: Allergies Allergy/AdvReac Type Severity Reaction Status Date / Time amoxicillin trihydrate * Allergy Severe diarrhea Verified 12/07/20 16:16 [From Augmentin] benazepril HCl * Allergy Severe Dizziness Verified 12/07/20 16:16 [From Lotensin] cephalexin monohydrate * Allergy Severe bloody Verified 12/07/20 16:16 [From Keflex] diarrhea iodine Allergy Severe Hives Verified 12/07/20 16:16 metoclopramide Allergy Severe Hives Verified 12/07/20 16:16 potassium clavulanate * Allergy Severe diarrhea Verified 12/07/20 16:16 [From Augmentin] tetracycline [Tetracycline] Allergy Severe RUINED Verified 12/07/20 16:16 TEETH ENAMEL povidone-iodine Allergy Intermediate Itching Verified 12/07/20 16:16 [From Betadine] soap * [From Betadine] Allergy Intermediate Itching Verified 12/07/20 16:16 Sulfa (Sulfonamide Allergy Intermediate Hallucinati Verified 12/07/20 16:16 Antibiotics) ons cigarette smoke Allergy Respiratory Verified 12/07/20 16:16 perfume Allergy Respiratory Verified 12/07/20 16:16 strawberry Allergy Hives Verified 12/07/20 16:16 iron sucrose complex * AdvReac Intermediate diarrhea Verified 12/07/20 16:16 [From Venofer] metoclopramide HCl * AdvReac Intermediate Emesis Verified 12/07/20 16:16 [From Reglan] nickel [Nickel] AdvReac Intermediate Rash Verified 12/07/20 16:16 adhesive AdvReac Mild Rash Verified 12/07/20 16:16 adhesive tape AdvReac Mild Rash Verified 12/07/20 16:16 - Social History Does the pt smoke?: No Smoking Status: Never smoker Does the pt drink ETOH?: No Does the pt have substance abuse?: No - Immunizations Immunizations are current?: Yes - POLST Patient has POLST: No PD ED PE NORMAL - Vitals Vital signs reviewed: Yes - General General: Alert and oriented X 3, No acute distress, Other (pale appearing) - HEENT HEENT: PERRL, Moist mucous membranes - Neck Neck: Supple, no meningeal sign - Cardiac Cardiac: RRR, Strong equal pulses - Respiratory Respiratory: No respiratory distress, Clear bilaterally - Abdomen Abdomen: Soft, Non tender, Non distended - Derm Derm: Warm and dry - Extremities Extremities: No calf tenderness / cord - Neuro Neuro: Alert and oriented X 3 Results - Vitals Vitals: Vital Signs - 24 hr 12/07/20 12/07/20 12/07/20 16:08 17:23 19:00 Temperature 37.0 C Heart Rate 91 76 74 Respiratory 18 19 18 Rate Blood Pressure 111/61 109/43 L 108/58 L O2 Saturation 99 98 98 12/07/20 12/07/20 12/07/20 19:13 19:27 19:32 Temperature 37.7 C 37.7 C 37.7 C Heart Rate 72 70 Respiratory 20 25 H Rate Blood Pressure 108/50 L 110/64 O2 Saturation 12/07/20 12/07/20 19:42 21:00 Temperature 37.8 C 37.9 C Heart Rate 73 72 Respiratory 25 H 24 Rate Blood Pressure 107/59 L 122/49 L O2 Saturation 95 Oxygen O2 Source Room air - Labs Labs: Laboratory Tests 06/12/07/20 12/07/20 16:48 16:48 18:07 WBC 4.8 RBC 2.32 L Hgb 6.2 L* Hct 20.4 L MCV 87.9 MCH 26.7 L MCHC 30.4 L RDW 17.2 H Plt Count 85 L MPV 11.3 H Neut # (Auto) 3.5 Lymph # (Auto) 0.4 L [place] # (Auto) 0.8 Eos # (Auto) 0.0 Baso # (Auto) 0.0 Absolute Nucleated RBC 0.00 Nucleated RBC % 0.0 Sodium 134 L Potassium 4.8 Chloride 95 L Carbon Dioxide 25 Anion Gap 14.0 H BUN 83 H* Creatinine 9.1 H* Estimated GFR (MDRD) 4 L Glucose 160 H Calcium 9.2 Phosphorus 6.0 H Magnesium 2.7 Total Bilirubin 1.1 H AST 35 ALT 29 Alkaline Phosphatase 121 Total Protein 5.9 L Albumin 2.9 L Globulin 3.0 Albumin/Globulin Ratio 1.0 Lipase 58 H Blood Type B NEGATIVE Antibody Screen NEGATIVE Crossmatch IS Only See Detail PD MEDICAL DECISION MAKING - ED course Complexity details: reviewed results, re-evaluated patient, considered differential, d/w patient, d/w store sales consultant ED course: Patient is normal hemoglobin is between 7 and 8. She is down to 6.2 today. I discussed the case with Dr. Roa, on-call for Dr. Hogan, he recommends transfuse 1 unit of blood. She can have dialysis tomorrow at 945. 1 unit of blood given. She will follow up in the morning for dialysis. She will follow up with her doctor for further care. No other acute issues. Patient counseled regarding signs and symptoms for which I believe and urgent re-evaluation would be necessary. Patient with good understanding of and agreement to plan and is comfortable going home at this time This document was made in part using voice recognition software. While efforts are made to proofread this document, sound alike and grammatical errors may occur. Departure - Departure Disposition: 01 Home, Self Care Clinical Impression: Symptomatic anemia, Chronic kidney disease with end stage renal failure on dialysis Condition: Good Instructions: ED Anemia Type Not Specified Follow-Up: Juvencio Acuña DO [Primary Care Provider] - Within 1 week Comments: Follow-up with your doctor for further care. Return if you worsen. You are scheduled for dialysis at 9:45 AM tomorrow. I spoke with Dr. Thomas communications assistant for Dr. Hogan today.
[2020-12-07 22:35] VITALS: BP 127/50
== END 2020-12-07 22:38 | disposition home or self-care (01) ==
LOC: ED 16:00
DX: E11.22 Type 2 diabetes mellitus with diabetic chronic kidney disease (principal); N18.6 End stage renal disease; D63.1 Anemia in chronic kidney disease; Z99.2 Dependence on renal dialysis; I13.2 Hypertensive heart and chronic kidney disease with heart failure and with stage 5 chronic kidney disease, or end stage renal disease
CPT/HCPCS: 36415; 36430; 80053; 83690; 83735; 84100; 85025; 86850; 86900; 86901; 86920; 99284; 99285; P9016

== ENCOUNTER 2020-12-09 23:52 | Outpatient (CLI) | payer MEDICARE, MEDICAID | END 2020-12-09 23:59 | disposition short-term general hospital (02) | LOC: EMS 23:52 | DX: R11.2 Nausea with vomiting, unspecified (principal); K62.5 Hemorrhage of anus and rectum | CPT/HCPCS: A0425; A0429 ==

== ENCOUNTER 2021-01-23 13:01 | Emergency (ER) | payer MEDICARE, MEDICAID ==
--- NOTE | 2021-01-23 13:40 | ED Physician Documentation ---
History of Present Illness - Stated complaint Stated Complaint: WEAKNESS/SOA - Chief complaint Chief Complaint: General - Additonal information Additional information: 60-year-old female was advised to come to the emergency department for packed red blood cell infusion after dialysis for recent hemoglobin of 5.9. She has a history of multifactorial pancytopenia. She does report that she has chronic melena secondary to a history of Richardson and cirrhosis with the development of portal hypertension. She has been followed by GI at the [facility]. last EGD 01/2020. Reports 2-3 melanic stools daily. She last received blood transfusion in late December at [facility] when she presented there for bone biopsy. Last hemoglobin 7.4 down to 5. today after dialysis. Patient endorses dyspnea and orthopnea. No syncope or chest pain. Past medical history also includes end-stage renal disease, 3 times weekly dialysis Thursday schedule as well as RICHARDSON/cirrhosis Review of Systems Constitutional: denies: Fever, Chills Eyes: reports: Reviewed and negative Ears: reports: Reviewed and negative Throat: reports: Reviewed and negative Cardiac: reports: Reviewed and negative Respiratory: reports: Dyspnea. denies: Cough, Hemoptysis, Wheezing GI: reports: Bloody / black stool. denies: Abdominal Pain : denies: Dysuria, Frequency, Hesitancy Skin: denies: Rash, Lesions Musculoskeletal: reports: Reviewed and negative PD PAST MEDICAL HISTORY - Past Medical History Cardiovascular: Congestive heart failure, Hypertension, High cholesterol, Coronary artery disease, Peripheral Vascular Disease, Angina, [place], Arrhythmia, Other Respiratory: Pneumonia, Shortness of breath, Sleep apnea, CPAP use, Other Endocrine/Autoimmune: Type 2 diabetes, Other GI: GERD, GI bleed, Ulcers, Cirrhosis, Cholelithiasis, Other : Dialysis, Renal insuffiency, Other HEENT: Chronic vision loss, Other Psych: Depression, Anxiety, Panic attacks, Post traumatic stress disorder Musculoskeletal: Osteoarthritis, Fibromyalgia, Chronic back pain, Other Derm: None - Past Surgical History Past Surgical History: Yes General: EGD, Other Ortho: Carpal Tunnel surgery Cardiovascular: Coronary stent, Cardiac catheterization Neuro: Other HEENT: Myringotomy (tubes) Derm: Skin cancer surgery, Other - Present Medications Home Medications: Ambulatory Orders Medication Instructions Recorded Confirmed Dexlansoprazole [Dexilant] 60 mg PO DAILY 11/08/12 01/23/21 Nitroglycerin 0.4 mg PO Q5MIN PRN 12/28/13 01/23/21 Atorvastatin Calcium [Lipitor] 40 mg PO HS 10/09/14 01/23/21 PARoxetine HCl [Paxil] 40 mg PO DAILY 03/25/16 01/23/21 Nystatin 1 each MC DAILY 09/17/18 01/23/21 Pregabalin [Lyrica] 75 mg PO DAILY 09/17/18 01/23/21 hydrOXYzine HCL [Hydroxyzine HCl] 12.5 mg PO QID PRN 09/17/18 01/23/21 Cinacalcet HCl [Sensipar] 90 mg PO DAILY 10/29/18 01/16/21 L. Acidophilus/L. Rhamnosus 1 each PO DAILY 10/29/18 01/23/21 [Probiotic 15 Billion Cell Cap] Lanthanum Carbonate [Fosrenol] 1,500 mg PO TID 12/07/20 01/16/21 rifAXIMin [Xifaxan] 550 mg PO BID 12/07/20 01/16/21 Acetaminophen [Tylenol] 650 mg PO Q6H PRN 01/23/21 01/23/21 Cholecalciferol (Vitamin D3) 50 mcg PO DAILY 01/23/21 01/23/21 [Vitamin D3] Garlic 500 mg PO DAILY 01/23/21 01/23/21 Loperamide [Imodium] 2 mg PO QID PRN 01/23/21 01/23/21 Magnesium Oxide [Mag Ox] 400 mg PO DAILY 01/23/21 01/23/21 Melatonin 3 mg PO HS PRN 01/23/21 01/23/21 Midodrine HCl 5 mg PO ONCE 01/23/21 01/23/21 Pramipexole Di-HCl [Mirapex] 0.125 mg PO HS 01/23/21 01/23/21 Thiamine [Vitamin B-1] 100 mg PO DAILY 01/23/21 01/23/21 Vitamin B Complex 1 tab ORAL DAILY 01/23/21 01/23/21 Vitamin E 400 unit PO DAILY 01/23/21 01/23/21 hydrOXYzine HCL [Hydroxyzine HCl] 12.5 mg PO QID PRN 01/23/21 01/23/21 - Allergies Allergies/Adverse Reactions: Allergies Allergy/AdvReac Type Severity Reaction Status Date / Time amoxicillin trihydrate * Allergy Severe diarrhea Verified 12/18/20 16:29 [From Augmentin] benazepril HCl * Allergy Severe Dizziness Verified 12/18/20 16:29 [From Lotensin] cephalexin monohydrate * Allergy Severe bloody Verified 12/18/20 16:29 [From Keflex] diarrhea iodine Allergy Severe Hives Verified 12/18/20 16:29 metoclopramide Allergy Severe Hives Verified 12/18/20 16:29 potassium clavulanate * Allergy Severe diarrhea Verified 01/23/21 13:05 [From Augmentin] tetracycline [Tetracycline] Allergy Severe RUINED Verified 01/23/21 13:05 TEETH ENAMEL povidone-iodine Allergy Intermediate Itching Verified 01/23/21 13:05 [From Betadine] soap * [From Betadine] Allergy Intermediate Itching Verified 01/23/21 13:05 Sulfa (Sulfonamide Allergy Intermediate Hallucinati Verified 01/23/21 13:05 Antibiotics) ons cigarette smoke Allergy Respiratory Verified 01/23/21 13:05 perfume Allergy Respiratory Verified 01/23/21 13:05 strawberry Allergy Hives Verified 01/23/21 13:05 iron sucrose complex * AdvReac Intermediate diarrhea Verified 01/23/21 13:05 [From Venofer] metoclopramide HCl * AdvReac Intermediate Emesis Verified 01/23/21 13:05 [From Reglan] nickel [Nickel] AdvReac Intermediate Rash Verified 01/23/21 13:05 adhesive AdvReac Mild Rash Verified 01/23/21 13:05 adhesive tape AdvReac Mild Rash Verified 01/23/21 13:05 - Social History Does the pt smoke?: No Smoking Status: Never smoker Does the pt drink ETOH?: No Does the pt have substance abuse?: No - Immunizations Immunizations are current?: Yes - POLST Patient has POLST: No PD ED PE EXPANDED - General General: Alert, No acute distress, Other (obese) - HEENT HEENT: PERRL - Neck Neck: Supple w/out meningeal sx - Cardiac Cardiac: Regular Rate, Murmur Present, Radial strong equal, Pedal strong equal, Cap refill < 2 sec - Respiratory Respiratory: Clear to ausultation jimenez. No: Distress, Labored - Abdomen Abdomen: Normal Bowel sounds. No: Tender to palpation - Neuro Neuro: Alert and Oriented X 3, CNII-XII intact - GCS Eye Opening: Spontaneous Motor: Obeys Commands Verbal: Oriented Total: 15 Results - Vitals Vitals: Vital Signs - 24 hr 01/23/21 01/23/21 01/23/21 13:05 14:03 15:10 Temperature 36.7 C 36.8 C 36.3 C L Heart Rate 79 78 78 Respiratory 16 20 21 Rate Blood Pressure 121/72 92/39 L 90/35 L O2 Saturation 100 100 01/23/21 01/23/21 01/23/21 15:16 15:25 15:57 Temperature 36.3 C L 36.4 C L Heart Rate 78 78 80 Respiratory 19 18 17 Rate Blood Pressure 91/35 L 90/36 L 92/39 L O2 Saturation 100 01/23/21 01/23/21 01/23/21 16:00 16:30 17:00 Temperature 36.3 C L Heart Rate 82 77 72 Respiratory 20 18 16 Rate Blood Pressure 96/44 L 102/41 L 101/61 O2 Saturation 100 100 100 01/23/21 01/23/21 01/23/21 17:30 18:12 19:02 Temperature 36.4 C L 36.0 C L Heart Rate 77 71 72 Respiratory 21 16 17 Rate Blood Pressure 111/48 L 113/48 L 110/52 L O2 Saturation 100 Oxygen O2 Source Room air - Labs Labs: Laboratory Tests 01/23/21 01/23/21 01/23/21 13:45 13:45 13:45 WBC 5.1 RBC 1.99 L Hgb 5.4 L* Hct 18.8 L* MCV 94.5 MCH 27.1 MCHC 28.7 L RDW 17.7 H Plt Count 103 L MPV 11.3 H Neut # (Auto) 4.0 Lymph # (Auto) 0.5 L [place] # (Auto) 0.4 Eos # (Auto) 0.1 Baso # (Auto) 0.0 Absolute Nucleated RBC 0.00 Nucleated RBC % 0.0 Manual Slide Review Indicated Platelet Estimate DECREASED (<130,000) Platelet Morphology NORMAL APPEARANCE RBC Morph Micro Appear 1+ ANISOCYTOSIS Sodium 137 Potassium 3.4 L Chloride 98 L Carbon Dioxide 25 Anion Gap 14.0 H BUN 41 H Creatinine 4.2 H Estimated GFR (MDRD) 11 L Glucose 133 H Lactic Acid Calcium 8.4 L Total Bilirubin 0.7 AST 34 ALT 21 Alkaline Phosphatase 134 H Total Protein 5.9 L Albumin 2.8 L Globulin 3.1 Albumin/Globulin Ratio 0.9 L Lipase 79 H Nasal Adenovirus (PCR) Nasal B. parapertussis DNA (PCR) Nasal Coronavir 229E PCR Nasal Coronavir HKU1 PCR Nasal Coronavir NL63 PCR Nasal Coronavir OC43 PCR Nasal Enterovir/Rhinovir PCR Nasal Influenza B PCR Nasal Influenza A PCR Nasal Parainfluen 1 PCR Nasal Parainfluen 2 PCR Nasal Parainfluen 3 PCR Nasal Parainfluen 4 PCR Nasal RSV (PCR) Nasal B.pertussis DNA PCR Nasal C.pneumoniae (PCR) Miguel A Human Metapneumo PCR Nasal M.pneumoniae (PCR) Nasal SARS-CoV-2 (PCR) Blood Type B NEGATIVE Antibody Screen NEGATIVE Crossmatch IS Only See Detail 01/23/21 01/23/21 14:55 17:15 WBC RBC Hgb Hct MCV MCH MCHC RDW Plt Count MPV Neut # (Auto) Lymph # (Auto) King # (Auto) Eos # (Auto) Baso # (Auto) Absolute Nucleated RBC Nucleated RBC % Manual Slide Review Platelet Estimate Platelet Morphology RBC Morph Micro Appear Sodium Potassium Chloride Carbon Dioxide Anion Gap BUN Creatinine Estimated GFR (MDRD) Glucose Lactic Acid 2.2 Calcium Total Bilirubin AST ALT Alkaline Phosphatase Total Protein Albumin Globulin Albumin/Globulin Ratio Lipase Nasal Adenovirus (PCR) NOT DETECTED Nasal B. parapertussis DNA (PCR) NOT DETECTED Nasal Coronavir 229E PCR NOT DETECTED Nasal Coronavir HKU1 PCR NOT DETECTED Nasal Coronavir NL63 PCR NOT DETECTED Nasal Coronavir OC43 PCR NOT DETECTED Nasal Enterovir/Rhinovir PCR NOT DETECTED Nasal Influenza B PCR NOT DETECTED Nasal Influenza A PCR NOT DETECTED Nasal Parainfluen 1 PCR NOT DETECTED Nasal Parainfluen 2 PCR NOT DETECTED Nasal Parainfluen 3 PCR NOT DETECTED Nasal Parainfluen 4 PCR NOT DETECTED Nasal RSV (PCR) NOT DETECTED Nasal B.pertussis DNA PCR NOT DETECTED Nasal C.pneumoniae (PCR) NOT DETECTED Miguel A Human Metapneumo PCR NOT DETECTED Nasal M.pneumoniae (PCR) NOT DETECTED Nasal SARS-CoV-2 (PCR) NOT DETECTED Blood Type Antibody Screen Crossmatch IS Only PD MEDICAL DECISION MAKING - ED course Complexity details: reviewed results, re-evaluated patient, d/w patient, d/w family ED course: This is a chronically ill 60-year-old female who has a history of ESRD (3x weekly dialysis), RICHARDSON/cirrhosis who presents with worsening melena and anemia. Hemoglobin 5.4. She does have a history of portal hypertension and as of recently the melena has been worsening. She last received dialysis today. Screening hemoglobin shows 5.4. I have ordered 2 units PRBC. She does have a soft blood pressure in the 90s but is awake oriented and well-appearing otherwise. Given the recurrent melena and the history of portal hypertension I have also instituted octreotide infusion as well as Protonix drip. However given the history of the worsening melena she likely needs transfer to a higher level of care where GI services are available. She likely needs EGD for evaluation of possible varices ? TIPS procedure. 1445: placing call to [facility] for tx and consult 1745: I spoke with Dr. Huma MEJIA on-call at [facility]. No beds available for transfer. We will be placed on a list for when a bed does becoem available. he recommends trying other hospitals in the corridor. Will reach out to [facility] and in the interim 1820: I have spoken with Dr. Brooks Accepting hospitalist at [facility]. He accepts the patient in transfer. COBRA paperwork completed. Pt has been accepted to telemetry bed 6n. Transfer will occur with [facility] at approximately 2030 this evening. Pt and her daughter at bedside updated. @nd unit of PRBCs infusing. BP has improved with infusion Departure - Departure Disposition: 02 Transfer Acute Care Hosp Clinical Impression: ESRD (end stage renal disease) on dialysis, Melena Anemia Qualifiers: Anemia type: iron deficiency Iron deficiency anemia type: chronic blood loss Qualified Code(s): D50.0 - Iron deficiency anemia secondary to blood loss (chronic)
[2021-01-23 13:52] LABS: BASOPHILS % (AUTO) 0.4 %; EOSINOPHILS # (AUTO) 0.1 10^3/uL (0.0-0.7); EOSINOPHILS % (AUTO) 1.2 %; LYMPHOCYTES # (AUTO) 0.5 10^3/uL (1.5-3.5); LYMPHOCYTES % (AUTO) 10.3 %; MEAN CORPUSCULAR HEMOGLOBIN 27.1 pg (27.0-31.0); MEAN CORPUSCULAR HGB CONC 28.7 g/dL (32.0-36.0); MEAN CORPUSCULAR VOLUME 94.5 fL (81.0-99.0); MEAN PLATELET VOLUME 11.3 fL (7.9-10.8); MONOCYTES # (AUTO) 0.4 10^3/uL (0.0-1.0); MONOCYTES % (AUTO) 7.9 %; NEUTROPHILS % (AUTO) 79.8 %; PLT - PLATELET COUNT 103 10^3/uL (130-450); RED BLOOD COUNT 1.99 10^6/uL (4.20-5.40); RED CELL DISTRIBUTION WIDTH 17.7 % (12.0-15.0); WHITE BLOOD COUNT 5.1 x10^3/uL (4.8-10.8)
[2021-01-23 14:00] LABS: HCT - HEMATOCRIT 18.8 % (37.0-47.0); HGB - HEMOGLOBIN 5.4 g/dL (12.0-16.0)
[2021-01-23 14:01] LABS: SLIDE REVIEW? Indicated
[2021-01-23 14:05] LABS: ALBUMIN 2.8 g/dL (3.2-5.5); ALBUMIN/GLOBULIN RATIO 0.9 (1.0-2.2); BILIRUBIN,TOTAL 0.7 mg/dL (0.2-1.0); CALCIUM 8.4 mg/dL (8.5-10.3); CREATININE 4.2 mg/dL (0.4-1.0); POTASSIUM 3.4 mmol/L (3.5-5.0); TOTAL PROTEIN 5.9 g/dL (6.7-8.2)
[2021-01-23 14:26] LABS: PLATELET ESTIMATE, MANUAL DECREASED (<130,000) (NORMAL); PLATELET MORPHOLOGY NORMAL APPEARANCE (NORMAL)
[2021-01-23] MEDS ORDERED: OCTREOTIDE 500 MCG in SODIUM CHLORIDE 0.9% 100ML 95 ML IV STA (14:32)
[2021-01-23] MEDS ORDERED: PANTOPRAZOLE 80 MG in SODIUM CHLORIDE 0.9% 100ML 100 ML IV STA ×4 (14:32)
[2021-01-23] MEDS ORDERED: OCTREOTIDE 500 MCG in SODIUM CHLORIDE 0.9% 100ML 99 ML IV STA (15:10)
[2021-01-23] MEDS ORDERED: ACETAMINOPHEN 325 MG TABLET PO STA (16:11)
[2021-01-23 18:36] LABS: B. PARAPERTUSSIS- RESP PCR PAN NOT DETECTED; B. PERTUSSIS- RESP PCR PANEL NOT DETECTED; C. PNEUMONIAE- RESP PCR PANEL NOT DETECTED; CORONAVIRUS 229E-RESP PCR NOT DETECTED; CORONAVIRUS HKU1-RESP PCR NOT DETECTED; CORONAVIRUS NL63-RESP PCR NOT DETECTED; CORONAVIRUS OC43-RESP PCR NOT DETECTED; HUMAN METAPNEUMOVIRUS NOT DETECTED; INFLUENZA A- RESP PCR PANEL NOT DETECTED; INFLUENZA B - RESP PCR PANEL NOT DETECTED; M. PNEUMONIAE- RESP PCR PANEL NOT DETECTED; PARAINFLUENZA VIRUS 1 NOT DETECTED; PARAINFLUENZA VIRUS 2 NOT DETECTED; PARAINFLUENZA VIRUS 3 NOT DETECTED; PARAINFLUENZA VIRUS 4 NOT DETECTED; RHINOVIRUS/ENTEROVIRUS NOT DETECTED; RSV- RESP PCR PANEL NOT DETECTED; SARS-CoV-2 -RESP PCR PANEL NOT DETECTED
[2021-01-23 20:34] VITALS: BP 106/39
== END 2021-01-23 20:54 | disposition short-term general hospital (02) ==
LOC: ED 13:01
DX: D50.0 Iron deficiency anemia secondary to blood loss (chronic) (principal); E11.22 Type 2 diabetes mellitus with diabetic chronic kidney disease; I12.0 Hypertensive chronic kidney disease with stage 5 chronic kidney disease or end stage renal disease; N18.6 End stage renal disease; Z99.2 Dependence on renal dialysis; Z20.822 Contact with and (suspected) exposure to COVID-19
CPT/HCPCS: 36415; 36430; 80053; 83605; 83690; 85025; 86850; 86900; 86901; 86920; 87631; 96365; 96366; 96368; 99284; 99285; A9270; J2354; P9016; 0202U

== ENCOUNTER 2021-02-04 13:59 | Emergency (ER) | payer MEDICARE, MEDICAID ==
[2021-02-04 15:17] LABS: EOSINOPHILS # (AUTO) 0.1 10^3/uL (0.0-0.7); LYMPHOCYTES # (AUTO) 0.4 10^3/uL (1.5-3.5); LYMPHOCYTES % (AUTO) 12.1 %; MEAN CORPUSCULAR HEMOGLOBIN 27.9 pg (27.0-31.0); MEAN CORPUSCULAR HGB CONC 30.1 g/dL (32.0-36.0); MEAN CORPUSCULAR VOLUME 92.8 fL (81.0-99.0); MEAN PLATELET VOLUME 11.2 fL (7.9-10.8); MONOCYTES # (AUTO) 0.3 10^3/uL (0.0-1.0); MONOCYTES % (AUTO) 8.8 %; NEUTROPHILS # (AUTO) 2.3 10^3/uL (1.5-6.6); NEUTROPHILS % (AUTO) 75.8 %; PLT - PLATELET COUNT 95 10^3/uL (130-450); RED BLOOD COUNT 2.08 10^6/uL (4.20-5.40); RED CELL DISTRIBUTION WIDTH 16.7 % (12.0-15.0)
[2021-02-04 15:21] LABS: HCT - HEMATOCRIT 19.3 % (37.0-47.0); HGB - HEMOGLOBIN 5.8 g/dL (12.0-16.0)
[2021-02-04 15:22] LABS: INR 1.1 (0.8-1.2); PT - PROTHROMBIN TIME 12.5 secs (9.9-12.6); SLIDE REVIEW? Indicated
[2021-02-04 15:32] LABS: ALBUMIN 2.9 g/dL (3.2-5.5); ALBUMIN/GLOBULIN RATIO 1.1 (1.0-2.2); BILIRUBIN,TOTAL 0.7 mg/dL (0.2-1.0); CALCIUM 8.6 mg/dL (8.5-10.3); CREATININE 5.9 mg/dL (0.4-1.0); POTASSIUM 4.3 mmol/L (3.5-5.0); TOTAL PROTEIN 5.6 g/dL (6.7-8.2)
[2021-02-04 15:49] LABS: PLATELET ESTIMATE, MANUAL DECREASED (<130,000) (NORMAL); PLATELET MORPHOLOGY NORMAL APPEARANCE (NORMAL)
[2021-02-04 17:20] LABS: B. PARAPERTUSSIS- RESP PCR PAN NOT DETECTED; B. PERTUSSIS- RESP PCR PANEL NOT DETECTED; C. PNEUMONIAE- RESP PCR PANEL NOT DETECTED; CORONAVIRUS 229E-RESP PCR NOT DETECTED; CORONAVIRUS HKU1-RESP PCR NOT DETECTED; CORONAVIRUS NL63-RESP PCR NOT DETECTED; CORONAVIRUS OC43-RESP PCR NOT DETECTED; HUMAN METAPNEUMOVIRUS NOT DETECTED; INFLUENZA A- RESP PCR PANEL NOT DETECTED; INFLUENZA B - RESP PCR PANEL NOT DETECTED; M. PNEUMONIAE- RESP PCR PANEL NOT DETECTED; PARAINFLUENZA VIRUS 1 NOT DETECTED; PARAINFLUENZA VIRUS 2 NOT DETECTED; PARAINFLUENZA VIRUS 3 NOT DETECTED; PARAINFLUENZA VIRUS 4 NOT DETECTED; RHINOVIRUS/ENTEROVIRUS NOT DETECTED; RSV- RESP PCR PANEL NOT DETECTED; SARS-CoV-2 -RESP PCR PANEL NOT DETECTED
--- NOTE | 2021-02-04 18:03 | ED Physician Documentation ---
History of Present Illness - Stated complaint Stated Complaint: WEAKNES/FUZZY HEAD - Chief complaint Chief Complaint: General - History obtained from History obtained from: Patient - History of Present Illness Timing: Yesterday - Additonal information Additional information: 60-year-old female with a history of polycystic kidney disease on dialysis has developed increased fatigue and weakness. She has had a recent history of GI bleed and required 4 unit transfusion. She states that she has frequent black stool and she has had cautery done at her most recent hospitalization. She has had complications of kidney disease, CHF, diabetes,CAD, PVD, pneumonia, GERD and GI bleeding. She did do dialysis today and she had her blood checked there she will not find the results till tomorrow. Review of Systems Constitutional: reports: Fatigue. denies: Fever Eyes: denies: Decreased vision Ears: denies: Ear pain Nose: denies: Congestion Throat: denies: Sore throat Cardiac: denies: Chest pain / pressure, Palpitations Respiratory: reports: Dyspnea. denies: Cough GI: denies: Abdominal Pain, Nausea, Vomiting, Diarrhea : denies: Dysuria, Frequency Skin: denies: Rash Musculoskeletal: denies: Neck pain, Back pain, Extremity pain Neurologic: reports: Generalized weakness. denies: Focal weakness, Numbness PD PAST MEDICAL HISTORY - Past Medical History Past Medical History: Yes Cardiovascular: Congestive heart failure, Hypertension, High cholesterol, Coronary artery disease, Peripheral Vascular Disease, Angina, MT, Arrhythmia, Other Respiratory: Pneumonia, Shortness of breath, Sleep apnea, CPAP use, Other Endocrine/Autoimmune: Type 2 diabetes, Other GI: GERD, GI bleed, Ulcers, Cirrhosis, Cholelithiasis, Other : Dialysis, Renal insuffiency, Other HEENT: Chronic vision loss, Other Psych: Depression, Anxiety, Panic attacks, Post traumatic stress disorder Musculoskeletal: Osteoarthritis, Fibromyalgia, Chronic back pain, Other Derm: None - Past Surgical History Past Surgical History: Yes General: EGD, Other Ortho: Carpal Tunnel surgery Cardiovascular: Coronary stent, Cardiac catheterization Neuro: Other HEENT: Myringotomy (tubes) Derm: Skin cancer surgery, Other - Present Medications Home Medications: Ambulatory Orders Medication Instructions Recorded Confirmed Dexlansoprazole [Dexilant] 60 mg PO DAILY 11/08/12 02/04/21 Nitroglycerin 0.4 mg PO Q5MIN PRN 12/28/13 02/04/21 Atorvastatin Calcium [Lipitor] 40 mg PO HS 10/09/14 02/04/21 PARoxetine HCl [Paxil] 40 mg PO DAILY 03/25/16 02/04/21 Nystatin 1 each MC DAILY 09/17/18 02/04/21 Pregabalin [Lyrica] 75 mg PO DAILY 09/17/18 02/04/21 Cinacalcet HCl [Sensipar] 90 mg PO DAILY 10/29/18 02/04/21 L. Acidophilus/L. Rhamnosus 1 each PO DAILY 10/29/18 02/04/21 [Probiotic 15 Billion Cell Cap] Lanthanum Carbonate [Fosrenol] 1,500 mg PO TID 12/07/20 02/04/21 rifAXIMin [Xifaxan] 550 mg PO BID 12/07/20 02/04/21 Acetaminophen [Tylenol] 650 mg PO Q6H PRN 01/23/21 02/04/21 Cholecalciferol (Vitamin D3) 50 mcg PO DAILY 01/23/21 02/04/21 [Vitamin D3] Garlic 500 mg PO DAILY 01/23/21 02/04/21 Loperamide [Imodium] 2 mg PO QID PRN 01/23/21 02/04/21 Magnesium Oxide [Mag Ox] 400 mg PO DAILY 01/23/21 02/04/21 Melatonin 3 mg PO HS PRN 01/23/21 02/04/21 Midodrine HCl 5 mg PO ONCE 01/23/21 02/04/21 Pramipexole Di-HCl [Mirapex] 0.125 mg PO HS 01/23/21 02/04/21 Thiamine [Vitamin B-1] 100 mg PO DAILY 01/23/21 02/04/21 Vitamin B Complex 1 tab ORAL DAILY 01/23/21 02/04/21 Vitamin E 400 unit PO DAILY 01/23/21 02/04/21 hydrOXYzine HCL [Hydroxyzine HCl] 12.5 mg PO QID PRN 01/23/21 02/04/21 - Allergies Allergies/Adverse Reactions: Allergies Allergy/AdvReac Type Severity Reaction Status Date / Time amoxicillin trihydrate * Allergy Severe diarrhea Verified 02/04/21 15:57 [From Augmentin] benazepril HCl * Allergy Severe Dizziness Verified 02/04/21 15:57 [From Lotensin] cephalexin monohydrate * Allergy Severe bloody Verified 02/04/21 15:57 [From Keflex] diarrhea iodine Allergy Severe Hives Verified 02/04/21 15:57 metoclopramide Allergy Severe Hives Verified 02/04/21 15:57 potassium clavulanate * Allergy Severe diarrhea Verified 02/04/21 15:57 [From Augmentin] tetracycline [Tetracycline] Allergy Severe RUINED Verified 02/04/21 15:57 TEETH ENAMEL povidone-iodine Allergy Intermediate Itching Verified 02/04/21 15:57 [From Betadine] soap * [From Betadine] Allergy Intermediate Itching Verified 02/04/21 15:57 Sulfa (Sulfonamide Allergy Intermediate Hallucinati Verified 02/04/21 15:57 Antibiotics) ons cigarette smoke Allergy Respiratory Verified 02/04/21 15:57 perfume Allergy Respiratory Verified 02/04/21 15:57 strawberry Allergy Hives Verified 02/04/21 15:57 iron sucrose complex * AdvReac Intermediate diarrhea Verified 02/04/21 15:57 [From Venofer] metoclopramide HCl * AdvReac Intermediate Emesis Verified 02/04/21 15:57 [From Reglan] nickel [Nickel] AdvReac Intermediate Rash Verified 02/04/21 15:57 adhesive AdvReac Mild Rash Verified 02/04/21 15:57 adhesive tape AdvReac Mild Rash Verified 02/04/21 15:57 - Social History Does the pt smoke?: No Smoking Status: Never smoker Does the pt drink ETOH?: No Does the pt have substance abuse?: No - Immunizations Immunizations are current?: Yes - POLST Patient has POLST: No PD ED PE NORMAL - General General: Alert and oriented X 3, No acute distress, Well developed/nourished, Other (60-year-old female accompanied by a caregiver.) - HEENT HEENT: Atraumatic, PERRL, EOMI - Neck Neck: Supple, no meningeal sign, No bony TTP - Cardiac Cardiac: RRR, No murmur - Respiratory Respiratory: No respiratory distress, Clear bilaterally - Abdomen Abdomen: Normal bowel sounds, Soft, Non tender, Non distended, No organomegaly - Back Back: No CVA TTP, No spinal TTP - Derm Derm: Normal color, Warm and dry, No rash - Extremities Extremities: No deformity, No edema - Neuro Neuro: Alert and oriented X 3, 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, No motor deficit, Normal speech Eye Opening: Spontaneous Motor: Obeys Commands Verbal: Oriented GCS Score: 15 - Psych Psych: Normal mood, Normal affect Results - Vitals Vitals: Vital Signs - 24 hr 02/04/21 02/04/21 02/04/21 14:14 16:02 16:23 Temperature 36.5 C 36.7 C 36.2 C L Heart Rate 100 72 74 Respiratory 16 16 16 Rate Blood Pressure 104/60 120/62 91/30 L O2 Saturation 96 98 02/04/21 02/04/21 02/04/21 16:27 16:38 17:18 Temperature 36.7 C 36.0 C L 36.3 C L Heart Rate 73 75 76 Respiratory 16 16 16 Rate Blood Pressure 91/43 L 89/44 L 91/50 L O2 Saturation 100 Oxygen O2 Source Room air - Labs Labs: Laboratory Tests 02/04/21 02/04/21 02/04/21 15:10 15:10 15:10 WBC 3.0 L RBC 2.08 L Hgb 5.8 L* Hct 19.3 L* MCV 92.8 MCH 27.9 MCHC 30.1 L RDW 16.7 H Plt Count 95 L MPV 11.2 H Neut # (Auto) 2.3 Lymph # (Auto) 0.4 L [place] # (Auto) 0.3 Eos # (Auto) 0.1 Baso # (Auto) 0.0 Absolute Nucleated RBC 0.00 Nucleated RBC % 0.0 Manual Slide Review Indicated Platelet Estimate DECREASED (<130,000) Platelet Morphology NORMAL APPEARANCE RBC Morph Micro Appear 1+ BASO STIPPLING PT 12.5 INR 1.1 Sodium Potassium Chloride Carbon Dioxide Anion Gap BUN Creatinine Estimated GFR (MDRD) Glucose Calcium Total Bilirubin AST ALT Alkaline Phosphatase Total Protein Albumin Globulin Albumin/Globulin Ratio Nasal Adenovirus (PCR) Nasal B. parapertussis DNA (PCR) Nasal Coronavir 229E PCR Nasal Coronavir HKU1 PCR Nasal Coronavir NL63 PCR Nasal Coronavir OC43 PCR Nasal Enterovir/Rhinovir PCR Nasal Influenza B PCR Nasal Influenza A PCR Nasal Parainfluen 1 PCR Nasal Parainfluen 2 PCR Nasal Parainfluen 3 PCR Nasal Parainfluen 4 PCR Nasal RSV (PCR) Nasal B.pertussis DNA PCR Nasal C.pneumoniae (PCR) Miguel A Human Metapneumo PCR Nasal M.pneumoniae (PCR) Nasal SARS-CoV-2 (PCR) Blood Type B NEGATIVE Antibody Screen NEGATIVE Crossmatch IS Only See Detail 02/04/21 02/04/21 15:10 15:52 WBC RBC Hgb Hct MCV MCH MCHC RDW Plt Count MPV Neut # (Auto) Lymph # (Auto) [place] # (Auto) Eos # (Auto) Baso # (Auto) Absolute Nucleated RBC Nucleated RBC % Manual Slide Review Platelet Estimate Platelet Morphology RBC Morph Micro Appear PT INR Sodium 137 Potassium 4.3 Chloride 98 L Carbon Dioxide 27 Anion Gap 12.0 BUN 44 H Creatinine 5.9 H Estimated GFR (MDRD) 7 L Glucose 137 H Calcium 8.6 Total Bilirubin 0.7 AST 41 ALT 28 Alkaline Phosphatase 116 Total Protein 5.6 L Albumin 2.9 L Globulin 2.7 Albumin/Globulin Ratio 1.1 Nasal Adenovirus (PCR) NOT DETECTED Nasal B. parapertussis DNA (PCR) NOT DETECTED Nasal Coronavir 229E PCR NOT DETECTED Nasal Coronavir HKU1 PCR NOT DETECTED Nasal Coronavir NL63 PCR NOT DETECTED Nasal Coronavir OC43 PCR NOT DETECTED Nasal Enterovir/Rhinovir PCR NOT DETECTED Nasal Influenza B PCR NOT DETECTED Nasal Influenza A PCR NOT DETECTED Nasal Parainfluen 1 PCR NOT DETECTED Nasal Parainfluen 2 PCR NOT DETECTED Nasal Parainfluen 3 PCR NOT DETECTED Nasal Parainfluen 4 PCR NOT DETECTED Nasal RSV (PCR) NOT DETECTED Nasal B.pertussis DNA PCR NOT DETECTED Nasal C.pneumoniae (PCR) NOT DETECTED Miguel A Human Metapneumo PCR NOT DETECTED Nasal M.pneumoniae (PCR) NOT DETECTED Nasal SARS-CoV-2 (PCR) NOT DETECTED Blood Type Antibody Screen Crossmatch IS Only PD MEDICAL DECISION MAKING - ED course Complexity details: reviewed old records, reviewed results, re-evaluated patient, considered differential, d/w patient, d/w family ED course: 60-year-old female with complicated medical history including end-stage renal disease on dialysis does not make much urine she has had GI bleeding she will require transfusion she will require more than 1 unit of blood and likely need dialysis between units. She has been recently cared for at [facility] in [place] and they are willing to accept the patient back there when they have a bed available. Here in the emergency department she is transfused a unit of packed red blood cells in anticipation of transfer. At shift change we are awaiting a bed at [facility] in [place] and care is turned over to Dr. Fox. Departure - Departure Clinical Impression: ESRD (end stage renal disease) on dialysis, Symptomatic anemia GI bleeding Qualifiers: GI bleed type/associated pathology: melena Qualified Code(s): K92.1 - Melena Condition: Stable
[2021-02-04] MEDS ORDERED: MORPHINE 2 MG/ML CARPUJECT IVP STA (19:31)
[2021-02-04] MEDS ORDERED: PANTOPRAZOLE 40 MG VIAL IVP STA (19:31)
[2021-02-04 22:52] LABS: HGB - HEMOGLOBIN 6.5 g/dL (12.0-16.0)
--- NOTE | 2021-02-04 22:59 | ED Physician Documentation ---
ED Addendum - Addendum Addendum: 02/04/21 22:58 No changes on my shift. Still awaiting possible transfer to [place]. Signed out to Dr. Helm for further evaluation.
[2021-02-04] MEDS ORDERED: PANTOPRAZOLE 80 MG in SODIUM CHLORIDE 0.9% 100ML 100 ML IV STA (23:56)
[2021-02-05] MEDS ORDERED: MORPHINE 2 MG/ML CARPUJECT IVP STA (00:25)
[2021-02-05 00:51] LABS: EOSINOPHILS # (AUTO) 0.1 10^3/uL (0.0-0.7); EOSINOPHILS % (AUTO) 1.6 %; HCT - HEMATOCRIT 21.1 % (37.0-47.0); LYMPHOCYTES # (AUTO) 0.5 10^3/uL (1.5-3.5); LYMPHOCYTES % (AUTO) 17.4 %; MEAN CORPUSCULAR HEMOGLOBIN 27.7 pg (27.0-31.0); MEAN CORPUSCULAR HGB CONC 30.3 g/dL (32.0-36.0); MEAN CORPUSCULAR VOLUME 91.3 fL (81.0-99.0); MEAN PLATELET VOLUME 11.5 fL (7.9-10.8); MONOCYTES # (AUTO) 0.3 10^3/uL (0.0-1.0); MONOCYTES % (AUTO) 9.2 %; NEUTROPHILS # (AUTO) 2.2 10^3/uL (1.5-6.6); NEUTROPHILS % (AUTO) 70.5 %; PLT - PLATELET COUNT 96 10^3/uL (130-450); RED BLOOD COUNT 2.31 10^6/uL (4.20-5.40); RED CELL DISTRIBUTION WIDTH 16.8 % (12.0-15.0); WHITE BLOOD COUNT 3.1 x10^3/uL (4.8-10.8)
[2021-02-05] MEDS ORDERED: PANTOPRAZOLE 40 MG VIAL ONE (00:51)
[2021-02-05 00:53] LABS: HGB - HEMOGLOBIN 6.4 g/dL (12.0-16.0)
[2021-02-05 03:19] LABS: BASOPHILS % (AUTO) 1.2 %; EOSINOPHILS # (AUTO) 0.1 10^3/uL (0.0-0.7); EOSINOPHILS % (AUTO) 2.5 %; LYMPHOCYTES # (AUTO) 0.6 10^3/uL (1.5-3.5); LYMPHOCYTES % (AUTO) 16.9 %; MEAN CORPUSCULAR HEMOGLOBIN 28.1 pg (27.0-31.0); MEAN CORPUSCULAR HGB CONC 30.4 g/dL (32.0-36.0); MEAN CORPUSCULAR VOLUME 92.4 fL (81.0-99.0); MEAN PLATELET VOLUME 11.2 fL (7.9-10.8); MONOCYTES # (AUTO) 0.3 10^3/uL (0.0-1.0); MONOCYTES % (AUTO) 8.9 %; NEUTROPHILS # (AUTO) 2.3 10^3/uL (1.5-6.6); NEUTROPHILS % (AUTO) 70.2 %; PLT - PLATELET COUNT 96 10^3/uL (130-450); RED BLOOD COUNT 2.49 10^6/uL (4.20-5.40); RED CELL DISTRIBUTION WIDTH 17.2 % (12.0-15.0); WHITE BLOOD COUNT 3.3 x10^3/uL (4.8-10.8)
--- NOTE | 2021-02-05 04:02 | ED Physician Documentation ---
ED Addendum - Addendum Addendum: 02/05/21 02:01 Patient endorsed to me by Dr. Fox. Discussed with Dr. Beth Powell at [facility] who accepts in transfer pending stable repeat H&H. There is a bed available in the nephrology wing. she requested we start PPI drip as well which I have ordered. 02/05/21 04:02 Impression 1. upper GI bleed 2. anemia 3. cirrhosis 4. ESRD
[2021-02-05 04:35] VITALS: BP 95/55
== END 2021-02-05 04:50 | disposition short-term general hospital (02) ==
LOC: ED 13:59
DX: K92.2 Gastrointestinal hemorrhage, unspecified (principal); Q61.3 Polycystic kidney, unspecified; K74.60 Unspecified cirrhosis of liver; E11.22 Type 2 diabetes mellitus with diabetic chronic kidney disease; I12.0 Hypertensive chronic kidney disease with stage 5 chronic kidney disease or end stage renal disease; N18.6 End stage renal disease; Z99.2 Dependence on renal dialysis; K92.1 Melena; D63.1 Anemia in chronic kidney disease; Z20.822 Contact with and (suspected) exposure to COVID-19
CPT/HCPCS: 36415; 36430; 80053; 85014; 85018; 85025; 85610; 86850; 86900; 86901; 86920; 87631; 96374; 96375; 96376; 99283; 99285; P9040; 0202U

== ENCOUNTER 2021-02-14 12:38 | Outpatient (CLI) | payer MEDICARE, MEDICAID | END 2021-02-14 12:39 | disposition EMS.NT | LOC: EMS 12:38 | DX: S50.312A Abrasion of left elbow, initial encounter (principal); M25.552 Pain in left hip; W18.39XA Other fall on same level, initial encounter; Y93.I9 Activity, other involving external motion; Y92.811 Bus as the place of occurrence of the external cause ==

== ENCOUNTER 2021-03-25 09:27 | Outpatient (CLI) | payer MEDICARE, MEDICAID | END 2021-03-25 09:28 | disposition short-term general hospital (02) | LOC: EMS 09:27 | DX: I95.9 Hypotension, unspecified (principal); R53.1 Weakness | CPT/HCPCS: A0425; A0427 ==

== ENCOUNTER 2021-06-16 15:10 | Outpatient (CLI) | payer MEDICARE, MEDICAID | END 2021-06-16 15:11 | disposition critical access hospital (66) | LOC: EMS 15:10 | DX: I95.9 Hypotension, unspecified (principal); R53.83 Other fatigue; Z99.2 Dependence on renal dialysis | CPT/HCPCS: A0425; A0429 ==

== ENCOUNTER 2021-06-16 15:13 | Emergency (ER) | payer MEDICARE, MEDICAID ==
--- NOTE | 2021-06-16 15:42 | ED Physician Documentation ---
History of Present Illness - Stated complaint Stated Complaint: WEAKNESS - Chief complaint Chief Complaint: General - History obtained from History obtained from: Patient, EMS - History of Present Illness Timing: How many days ago (Patient states she is feeling progressively weaker over the last several days. She does states she has a mild sore throat. Denies cough or fevers. She went to dialysis today and was found to be hypotensive. They gave her some fluid infusion but did not run dialysis. Send her to the ER.) - Additonal information Additional information: She got transfused 10 days ago in [facility] due to progressive anemia. Appears transfused in March as well. Patient said she had gotten 5 units in the [facility] recently but I don't see that in the [facility] orders. No CBCs, and I would presume those were done through dialysis, so not in our system. Review of Systems Constitutional: reports: Fatigue. denies: Fever, Chills, Myalgias Nose: denies: Rhinorrhea / runny nose, Congestion Throat: reports: Sore throat (for few days) Cardiac: denies: Chest pain / pressure, Palpitations Respiratory: reports: Dyspnea (chronic, without recent change) GI: reports: Nausea, Bloody / black stool (She states she commonly has melena appearing stools. She has had multiple scopes by GI in [place] with gastritis. She states there also has been prior varices. No hematemesis.). denies: Abdom inal Pain, Vomiting, Diarrhea, Hematemesis Musculoskeletal: denies: Neck pain, Back pain Neurologic: reports: Generalized weakness. denies: Focal weakness, Numbness, Syncope PD PAST MEDICAL HISTORY - Past Medical History Cardiovascular: Congestive heart failure, Hypertension, High cholesterol, Coronary artery disease, Peripheral Vascular Disease, Angina, [place], Arrhythmia, Other Respiratory: Pneumonia, Shortness of breath, Sleep apnea, CPAP use, Other Endocrine/Autoimmune: Type 2 diabetes, Other GI: GERD, GI bleed (chronic recurrent GI bleed with periodic transfusions. Patient says she has had EGD "a dozen times" with cautery at times for ulcers. She says she has been Dx with varices but has not had them bleed in the past. ), Ulcers, Cirrhosis, Cholelithiasis, Other : Dialysis, Renal insuffiency, Other HEENT: Chronic vision loss, Other Psych: Depression, Anxiety, Panic attacks, Post traumatic stress disorder Musculoskeletal: Osteoarthritis, Fibromyalgia, Chronic back pain, Other Derm: None - Past Surgical History Past Surgical History: Yes General: EGD, Other Ortho: Carpal Tunnel surgery Cardiovascular: Coronary stent, Cardiac catheterization Neuro: Other HEENT: Myringotomy (tubes) Derm: Skin cancer surgery, Other - Present Medications Home Medications: Ambulatory Orders Medication Instructions Recorded Confirmed Dexlansoprazole [Dexilant] 60 mg PO DAILY 11/08/12 02/04/21 Nitroglycerin 0.4 mg PO Q5MIN PRN 12/28/13 02/04/21 Atorvastatin Calcium [Lipitor] 40 mg PO HS 10/09/14 02/04/21 PARoxetine HCl [Paxil] 40 mg PO DAILY 03/25/16 02/04/21 Nystatin 1 each MC DAILY 09/17/18 02/04/21 Pregabalin [Lyrica] 75 mg PO DAILY 09/17/18 02/04/21 Cinacalcet HCl [Sensipar] 90 mg PO DAILY 10/29/18 02/04/21 L. Acidophilus/L. Rhamnosus 1 each PO DAILY 10/29/18 02/04/21 [Probiotic 15 Billion Cell Cap] Lanthanum Carbonate [Fosrenol] 1,500 mg PO TID 12/07/20 02/04/21 rifAXIMin [Xifaxan] 550 mg PO BID 12/07/20 02/04/21 Acetaminophen [Tylenol] 650 mg PO Q6H PRN 01/23/21 02/04/21 Cholecalciferol (Vitamin D3) 50 mcg PO DAILY 01/23/21 02/04/21 [Vitamin D3] Garlic 500 mg PO DAILY 01/23/21 02/04/21 Loperamide [Imodium] 2 mg PO QID PRN 01/23/21 02/04/21 Magnesium Oxide [Mag Ox] 400 mg PO DAILY 01/23/21 02/04/21 Melatonin 3 mg PO HS PRN 01/23/21 02/04/21 Midodrine HCl 5 mg PO ONCE 01/23/21 02/04/21 Pramipexole Di-HCl [Mirapex] 0.125 mg PO HS 01/23/21 02/04/21 Thiamine [Vitamin B-1] 100 mg PO DAILY 01/23/21 02/04/21 Vitamin B Complex 1 tab ORAL DAILY 01/23/21 02/04/21 Vitamin E 400 unit PO DAILY 01/23/21 02/04/21 hydrOXYzine HCL [Hydroxyzine HCl] 12.5 mg PO QID PRN 01/23/21 02/04/21 nadoloL [Corgard] 5 mg PO DAILY 02/20/21 02/20/21 - Allergies Allergies/Adverse Reactions: Allergies Allergy/AdvReac Type Severity Reaction Status Date / Time amoxicillin trihydrate * Allergy Severe diarrhea Verified 02/04/21 15:57 [From Augmentin] benazepril HCl * Allergy Severe Dizziness Verified 02/04/21 15:57 [From Lotensin] cephalexin monohydrate * Allergy Severe bloody Verified 02/04/21 15:57 [From Keflex] diarrhea iodine Allergy Severe Hives Verified 02/04/21 15:57 metoclopramide Allergy Severe Hives Verified 02/04/21 15:57 potassium clavulanate * Allergy Severe diarrhea Verified 06/16/21 15:26 [From Augmentin] tetracycline [Tetracycline] Allergy Severe RUINED Verified 06/16/21 15:26 TEETH ENAMEL povidone-iodine Allergy Intermediate Itching Verified 06/16/21 15:26 [From Betadine] soap * [From Betadine] Allergy Intermediate Itching Verified 06/16/21 15:26 Sulfa (Sulfonamide Allergy Intermediate Hallucinati Verified 06/16/21 15:26 Antibiotics) ons cigarette smoke Allergy Respiratory Verified 06/16/21 15:26 perfume Allergy Respiratory Verified 06/16/21 15:26 strawberry Allergy Hives Verified 06/16/21 15:26 iron sucrose complex * AdvReac Intermediate diarrhea Verified 06/16/21 15:26 [From Venofer] metoclopramide HCl * AdvReac Intermediate Emesis Verified 06/16/21 15:26 [From Reglan] nickel [Nickel] AdvReac Intermediate Rash Verified 06/16/21 15:26 adhesive AdvReac Mild Rash Verified 06/16/21 15:26 adhesive tape AdvReac Mild Rash Verified 06/16/21 15:26 acetaminophen [From Tylenol] AdvReac Unknown Verified 06/16/21 15:26 - Social History Does the pt smoke?: No Smoking Status: Never smoker Does the pt drink ETOH?: No Does the pt have substance abuse?: No - Immunizations Immunizations are current?: Yes - POLST Patient has POLST: No PD ED PE NORMAL - Vitals Vital signs reviewed: Yes (BP on arrival here is normotensive. ) - General General: Alert and oriented X 3, Well developed/nourished - HEENT HEENT: Moist mucous membranes, Pharynx benign (no noted redness nor exudate. ) - Neck Neck: Supple, no meningeal sign, No adenopathy - Cardiac Cardiac: RRR, No murmur - Respiratory Respiratory: No respiratory distress, Clear bilaterally - Abdomen Abdomen: Non tender - Rectal Rectal: Deferred - Derm Derm: Normal color, Warm and dry - Extremities Extremities: Normal ROM s pain, No edema, No calf tenderness / cord - Neuro Neuro: Alert and oriented X 3, No motor deficit, Normal speech Results - Vitals Vitals: Vital Signs - 24 hr 06/16/21 06/16/21 06/16/21 15:21 15:30 16:55 Temperature 36.4 C L 36.5 C Heart Rate 73 72 79 Respiratory 18 17 17 Rate Blood Pressure 104/41 L 112/53 L 105/46 L O2 Saturation 99 99 06/16/21 06/16/21 06/16/21 17:17 17:21 18:00 Temperature 36.6 C 36.6 C Heart Rate 72 70 73 Respiratory 12 15 15 Rate Blood Pressure 102/47 L 108/45 L 106/46 L O2 Saturation 98 06/16/21 06/16/21 19:00 20:21 Temperature Heart Rate 72 75 Respiratory 16 17 Rate Blood Pressure 117/55 L 107/57 L O2 Saturation 98 99 Oxygen O2 Source Room air - Labs Labs: Laboratory Tests 06/16/21 06/16/21 06/16/21 15:42 15:42 15:42 WBC 4.3 L RBC 2.36 L Hgb 6.6 L* Hct 22.2 L MCV 94.1 MCH 28.0 MCHC 29.7 L RDW 16.7 H Plt Count 93 L MPV 11.8 H Neut # (Auto) 3.2 Lymph # (Auto) 0.5 L [place] # (Auto) 0.4 Eos # (Auto) 0.1 Baso # (Auto) 0.0 Absolute Nucleated RBC 0.00 Nucleated RBC % 0.0 Sodium 132 L Potassium 4.2 Chloride 94 L Carbon Dioxide 27 Anion Gap 11.0 BUN 38 H Creatinine 5.3 H Estimated GFR (MDRD) 8 L Glucose 164 H Calcium 8.6 Nasal Adenovirus (PCR) Nasal B. parapertussis DNA (PCR) Nasal Coronavir 229E PCR Nasal Coronavir HKU1 PCR Nasal Coronavir NL63 PCR Nasal Coronavir OC43 PCR Nasal Enterovir/Rhinovir PCR Nasal Influenza B PCR Nasal Influenza A PCR Nasal Parainfluen 1 PCR Nasal Parainfluen 2 PCR Nasal Parainfluen 3 PCR Nasal Parainfluen 4 PCR Nasal RSV (PCR) Nasal B.pertussis DNA PCR Nasal C.pneumoniae (PCR) Miguel A Human Metapneumo PCR Nasal M.pneumoniae (PCR) Nasal SARS-CoV-2 (PCR) Group A Strep Rapid Blood Type B NEGATIVE Antibody Screen NEGATIVE Crossmatch IS Only See Detail 06/16/21 06/16/21 16:24 16:24 WBC RBC Hgb Hct MCV MCH MCHC RDW Plt Count MPV Neut # (Auto) Lymph # (Auto) [place] # (Auto) Eos # (Auto) Baso # (Auto) Absolute Nucleated RBC Nucleated RBC % Sodium Potassium Chloride Carbon Dioxide Anion Gap BUN Creatinine Estimated GFR (MDRD) Glucose Calcium Nasal Adenovirus (PCR) NOT DETECTED Nasal B. parapertussis DNA (PCR) NOT DETECTED Nasal Coronavir 229E PCR NOT DETECTED Nasal Coronavir HKU1 PCR NOT DETECTED Nasal Coronavir NL63 PCR NOT DETECTED Nasal Coronavir OC43 PCR NOT DETECTED Nasal Enterovir/Rhinovir PCR NOT DETECTED Nasal Influenza B PCR NOT DETECTED Nasal Influenza A PCR NOT DETECTED Nasal Parainfluen 1 PCR NOT DETECTED Nasal Parainfluen 2 PCR NOT DETECTED Nasal Parainfluen 3 PCR NOT DETECTED Nasal Parainfluen 4 PCR NOT DETECTED Nasal RSV (PCR) NOT DETECTED Nasal B.pertussis DNA PCR NOT DETECTED Nasal C.pneumoniae (PCR) NOT DETECTED Miguel A Human Metapneumo PCR NOT DETECTED Nasal M.pneumoniae (PCR) NOT DETECTED Nasal SARS-CoV-2 (PCR) NOT DETECTED Group A Strep Rapid Negative Blood Type Antibody Screen Crossmatch IS Only PD MEDICAL DECISION MAKING - ED course Complexity details: considered differential (low blood count and appears to have had transfusions when gets lower without necessarily interventions. Can give unit of blood here and have her follow up with [employer]/GI tomorrow. ), d/w patient Departure - Departure Disposition: 01 Home, Self Care Clinical Impression: Chronic GI hemorrhage Anemia Qualifiers: Iron deficiency anemia type: chronic blood loss Renal failure Qualifiers: Renal failure chronicity: chronic Chronic kidney disease stage: on chronic dialysis Qualified Code(s): N18.6 - End stage renal disease; Z99.2 - Dependence on renal dialysis Condition: Stable Record reviewed to determine appropriate education?: Yes Instructions: ED Bleed UGI Stable Comments: Plan to do dialysis the next time you are able. Return for new or worsening symptoms. Reasonable to follow-up with your gastrointestinal physician at the next available appointment as well. Discharge Date/Time: 06/16/21 20:45
[2021-06-16 15:53] LABS: BASOPHILS % (AUTO) 0.9 %; EOSINOPHILS # (AUTO) 0.1 10^3/uL (0.0-0.7); EOSINOPHILS % (AUTO) 1.6 %; HCT - HEMATOCRIT 22.2 % (37.0-47.0); LYMPHOCYTES # (AUTO) 0.5 10^3/uL (1.5-3.5); LYMPHOCYTES % (AUTO) 10.6 %; MEAN CORPUSCULAR HGB CONC 29.7 g/dL (32.0-36.0); MEAN CORPUSCULAR VOLUME 94.1 fL (81.0-99.0); MEAN PLATELET VOLUME 11.8 fL (7.9-10.8); MONOCYTES # (AUTO) 0.4 10^3/uL (0.0-1.0); MONOCYTES % (AUTO) 10.1 %; NEUTROPHILS # (AUTO) 3.2 10^3/uL (1.5-6.6); NEUTROPHILS % (AUTO) 76.3 %; PLT - PLATELET COUNT 93 10^3/uL (130-450); RED BLOOD COUNT 2.36 10^6/uL (4.20-5.40); RED CELL DISTRIBUTION WIDTH 16.7 % (12.0-15.0); WHITE BLOOD COUNT 4.3 x10^3/uL (4.8-10.8)
[2021-06-16 15:56] LABS: HGB - HEMOGLOBIN 6.6 g/dL (12.0-16.0)
[2021-06-16 15:59] LABS: CALCIUM 8.6 mg/dL (8.5-10.3); CREATININE 5.3 mg/dL (0.4-1.0); POTASSIUM 4.2 mmol/L (3.5-5.0)
[2021-06-16 16:57] LABS: RAPID STREP SCREEN Negative (Negative)
[2021-06-16 17:41] LABS: B. PARAPERTUSSIS- RESP PCR PAN NOT DETECTED; B. PERTUSSIS- RESP PCR PANEL NOT DETECTED; C. PNEUMONIAE- RESP PCR PANEL NOT DETECTED; CORONAVIRUS 229E-RESP PCR NOT DETECTED; CORONAVIRUS HKU1-RESP PCR NOT DETECTED; CORONAVIRUS NL63-RESP PCR NOT DETECTED; CORONAVIRUS OC43-RESP PCR NOT DETECTED; HUMAN METAPNEUMOVIRUS NOT DETECTED; INFLUENZA A- RESP PCR PANEL NOT DETECTED; INFLUENZA B - RESP PCR PANEL NOT DETECTED; M. PNEUMONIAE- RESP PCR PANEL NOT DETECTED; PARAINFLUENZA VIRUS 1 NOT DETECTED; PARAINFLUENZA VIRUS 2 NOT DETECTED; PARAINFLUENZA VIRUS 3 NOT DETECTED; PARAINFLUENZA VIRUS 4 NOT DETECTED; RHINOVIRUS/ENTEROVIRUS NOT DETECTED; RSV- RESP PCR PANEL NOT DETECTED; SARS-CoV-2 -RESP PCR PANEL NOT DETECTED
[2021-06-16 20:27] VITALS: BP 107/57
== END 2021-06-16 20:45 | disposition home or self-care (01) ==
LOC: EDUNIT# → ED 15:13
DX: K92.2 Gastrointestinal hemorrhage, unspecified (principal); D50.0 Iron deficiency anemia secondary to blood loss (chronic); E11.22 Type 2 diabetes mellitus with diabetic chronic kidney disease; E11.51 Type 2 diabetes mellitus with diabetic peripheral angiopathy without gangrene; I13.2 Hypertensive heart and chronic kidney disease with heart failure and with stage 5 chronic kidney disease, or end stage renal disease; N18.6 End stage renal disease; I50.9 Heart failure, unspecified; Z99.2 Dependence on renal dialysis; Z20.822 Contact with and (suspected) exposure to COVID-19
CPT/HCPCS: 36415; 36430; 80048; 85025; 86850; 86900; 86901; 86920; 87070; 87430; 87631; 99283; 99285; P9016; 0202U

== ENCOUNTER 2021-07-04 17:04 | Emergency (ER) | payer MEDICARE, MEDICAID ==
[2021-07-04 18:02] VITALS: BP 124/44
--- NOTE | 2021-07-04 18:27 | ED Physician Documentation ---
History of Present Illness - Stated complaint Stated Complaint: UNTREATED BURN ON HAND,LW BP - Chief complaint Chief Complaint: Burn - History obtained from History obtained from: Patient - Additonal information Additional information: Pt comes to the ED for evaluation of her R index fingertip, which she burned 2 months ago. Pt has developed a dry, black eschar, and was told by her dialysis nurse to come here to "get it taken care of". Pt has not sought any medical care for this heretofore. She denies swelling, redness, or drainage. No pain. She states she does not have feeling in her fingertips, and when removing something from the microwave, didn't realize it was hot enough to burn her fingers. Pt's other complaint is her ongoing anemia, due to upper GI bleed. The pt states she has portal HTN, which has caused varicies. She has been scoped, but her GI has not been able to find a source for the bleeding. Pt is scheduled for another scope in about 1 month, but in the meantime, has required 2 transfusions per week (on an as-needed basis, but has been averaging this). Pt normally has dialysis MWF, but has been adding a session, also, because her regular dialysis has not been enough to keep up with the added fluid from the transfusions. Pt states her fatigue seems to come on faster over the past few weeks, but her GI has not moved her scope appointment up. Her hemoglobins have been averaging between 5.5 and 6.5 in recent weeks. Pt states her last transfusion was 2 days ago, and she is beginning to feel as though she needs another one. No chest pain. Pt is just generally fatigued, but has been able to get around. Her last hemoglobin was 5.6 on Thursday at dialysis, and she had her transfusion the next day. She has not had a repeat hemoglobin since. She states she was told by her dialysis nurse to come to [facility] and request transfer to [place]. She is due for dialysis tomorrow morning at 7:30, then has a 2 day hiatus. Review of Systems Ten Systems: 10 systems reviewed and negative Constitutional: reports: Fatigue Eyes: reports: Reviewed and negative Ears: reports: Reviewed and negative Nose: reports: Reviewed and negative Throat: reports: Reviewed and negative Cardiac: reports: Reviewed and negative Respiratory: reports: Reviewed and negative GI: reports: Reviewed and negative : reports: Reviewed and negative Skin: reports: Other (burn) Musculoskeletal: reports: Reviewed and negative Neurologic: reports: Reviewed and negative Psychiatric: reports: Reviewed and negative Endocrine: reports: Reviewed and negative Immunocompromised: reports: Reviewed and negative PD PAST MEDICAL HISTORY - Past Medical History Cardiovascular: Congestive heart failure, Hypertension, High cholesterol, Coronary artery disease, Peripheral Vascular Disease, Angina, [place], Arrhythmia, Other Respiratory: Pneumonia, Shortness of breath, Sleep apnea, CPAP use, Other Endocrine/Autoimmune: Type 2 diabetes, Other GI: GERD, GI bleed (chronic recurrent GI bleed with periodic transfusions. Patient says she has had EGD "a dozen times" with cautery at times for ulcers. She says she has been Dx with varices but has not had them bleed in the past. ), Ulcers, Cirrhosis, Cholelithiasis, Other : Dialysis, Renal insuffiency, Other HEENT: Chronic vision loss, Other Psych: Depression, Anxiety, Panic attacks, Post traumatic stress disorder Musculoskeletal: Osteoarthritis, Fibromyalgia, Chronic back pain, Other Derm: None - Past Surgical History Past Surgical History: Yes General: EGD, Other Ortho: Carpal Tunnel surgery Cardiovascular: Coronary stent, Cardiac catheterization Neuro: Other HEENT: Myringotomy (tubes) Derm: Skin cancer surgery, Other - Present Medications Home Medications: Ambulatory Orders Medication Instructions Recorded Confirmed Dexlansoprazole [Dexilant] 60 mg PO DAILY 11/08/12 02/04/21 Nitroglycerin 0.4 mg PO Q5MIN PRN 12/28/13 02/04/21 Atorvastatin Calcium [Lipitor] 40 mg PO HS 10/09/14 02/04/21 PARoxetine HCl [Paxil] 40 mg PO DAILY 03/25/16 02/04/21 Nystatin 1 each MC DAILY 09/17/18 02/04/21 Pregabalin [Lyrica] 75 mg PO DAILY 09/17/18 02/04/21 Cinacalcet HCl [Sensipar] 90 mg PO DAILY 10/29/18 02/04/21 L. Acidophilus/L. Rhamnosus 1 each PO DAILY 10/29/18 02/04/21 [Probiotic 15 Billion Cell Cap] Lanthanum Carbonate [Fosrenol] 1,500 mg PO TID 12/07/20 02/04/21 rifAXIMin [Xifaxan] 550 mg PO BID 12/07/20 02/04/21 Acetaminophen [Tylenol] 650 mg PO Q6H PRN 01/23/21 02/04/21 Cholecalciferol (Vitamin D3) 50 mcg PO DAILY 01/23/21 02/04/21 [Vitamin D3] Garlic 500 mg PO DAILY 01/23/21 02/04/21 Loperamide [Imodium] 2 mg PO QID PRN 01/23/21 02/04/21 Magnesium Oxide [Mag Ox] 400 mg PO DAILY 01/23/21 02/04/21 Melatonin 3 mg PO HS PRN 01/23/21 02/04/21 Midodrine HCl 5 mg PO ONCE 01/23/21 02/04/21 Pramipexole Di-HCl [Mirapex] 0.125 mg PO HS 01/23/21 02/04/21 Thiamine [Vitamin B-1] 100 mg PO DAILY 01/23/21 02/04/21 Vitamin B Complex 1 tab ORAL DAILY 01/23/21 02/04/21 Vitamin E 400 unit PO DAILY 01/23/21 02/04/21 hydrOXYzine HCL [Hydroxyzine HCl] 12.5 mg PO QID PRN 01/23/21 02/04/21 nadoloL [Corgard] 5 mg PO DAILY 02/20/21 02/20/21 - Allergies Allergies/Adverse Reactions: Allergies Allergy/AdvReac Type Severity Reaction Status Date / Time amoxicillin trihydrate * Allergy Severe diarrhea Verified 07/04/21 17:25 [From Augmentin] benazepril HCl * Allergy Severe Dizziness Verified 07/04/21 17:25 [From Lotensin] cephalexin monohydrate * Allergy Severe bloody Verified 07/04/21 17:25 [From Keflex] diarrhea iodine Allergy Severe Hives Verified 07/04/21 17:25 metoclopramide Allergy Severe Hives Verified 07/04/21 17:25 potassium clavulanate * Allergy Severe diarrhea Verified 07/04/21 17:25 [From Augmentin] tetracycline [Tetracycline] Allergy Severe RUINED Verified 07/04/21 17:25 TEETH ENAMEL povidone-iodine Allergy Intermediate Itching Verified 07/04/21 17:25 [From Betadine] soap * [From Betadine] Allergy Intermediate Itching Verified 07/04/21 17:25 Sulfa (Sulfonamide Allergy Intermediate Hallucinati Verified 07/04/21 17:25 Antibiotics) ons cigarette smoke Allergy Respiratory Verified 07/04/21 17:25 perfume Allergy Respiratory Verified 07/04/21 17:25 strawberry Allergy Hives Verified 07/04/21 17:25 iron sucrose complex * AdvReac Intermediate diarrhea Verified 07/04/21 17:25 [From Venofer] metoclopramide HCl * AdvReac Intermediate Emesis Verified 07/04/21 17:25 [From Reglan] nickel [Nickel] AdvReac Intermediate Rash Verified 07/04/21 17:25 adhesive AdvReac Mild Rash Verified 07/04/21 17:25 adhesive tape AdvReac Mild Rash Verified 07/04/21 17:25 acetaminophen [From Tylenol] AdvReac Unknown Verified 07/04/21 17:25 - Social History Does the pt smoke?: No Smoking Status: Never smoker Does the pt drink ETOH?: No Does the pt have substance abuse?: No - Immunizations Immunizations are current?: Yes - POLST Patient has POLST: No PD ED PE NORMAL - Vitals Vital signs reviewed: Yes - General General: Alert and oriented X 3, No acute distress, Well developed/nourished - HEENT HEENT: Atraumatic, PERRL, EOMI, Moist mucous membranes - Neck Neck: Supple, no meningeal sign - Cardiac Cardiac: RRR, No murmur, Strong equal pulses - Respiratory Respiratory: No respiratory distress, Clear bilaterally - Abdomen Abdomen: Soft, Non tender, Non distended - Derm Derm: Normal color, Warm and dry, No rash, Other (Dry, blackish eschar on R index fingertip, without edema, erythema, or drainage from surrounding tissue. Some mild black discoloration extending deeply into the viable tissue adjacent to eschar. ) - Extremities Extremities: No deformity, Other (No bony protrusion from index finger) - Neuro Neuro: Alert and oriented X 3, mysql dba 2-12 intact, Normal speech - Psych Psych: Normal mood, Normal affect Results - Vitals Vitals: Vital Signs - 24 hr 07/04/21 07/04/21 17:17 18:01 Temperature 36.5 C Heart Rate 100 78 Respiratory 16 20 Rate Blood Pressure 93/28 L 124/44 L O2 Saturation 96 100 Oxygen O2 Source Room air PD MEDICAL DECISION MAKING - ED course Complexity details: considered differential, d/w patient ED course: I discussed with the pt and her caregiver, who had accompanied her, that the findings on the finger are not acute, and will not be dealt with emergently by any hand specialist. Additionally, there is no sign of infection or wet gangrene. At this point, I have recommended follow up with a hand surgeon, as the extent of final tissue loss is unclear. I have explained to pt that it is of importance to follow up with the specialist, as she will likely need to have the bone shortened and a tissue flap created to cover the tip. As far as her anemia and dialysis, I have explained to her clearly that transfer to [place] or any other [facility] will not be an option at this time, given the extreme overloading of hospitals and unavailability of beds for more acute patients. The patient has good color, is hemodynamically stable, and has ambulated without difficulty in the ED. Additionally, she is able to get both her dialysis and her transfusions locally as an outpatient. As far as the idea of transfusing her in the ED, I do not feel that this is critical at this very moment, given the above considerations. Additionally, transfusing her puts her at risk of fluid overload, for which I have no remedy here, as we do not have dialysis, and pt makes no urine, so pharmacological diuresis would be impossible. If the pt w ishes to present to [place] herself by POV, she may; I have also given her the option to come back here about 5-6 hours before her dialysis, at which time she could be evaluated and potentially transfused right before dialysis. This way, if she becomes fluid overloaded, she can immediately have this addressed. Pt expresses understanding. We have discussed the usual indications for return. Departure - Departure Disposition: 01 Home, Self Care Clinical Impression: Burn NOS finger Qualifiers: Encounter type: initial encounter Laterality: left Burn degree: full thickness (3rd degree) Qualified Code(s): T23.322A - Burn of third degree of single left finger (nail) except thumb, initial encounter Anemia Qualifiers: Anemia type: unspecified type Qualified Code(s): D64.9 - Anemia, unspecified Condition: Stable Instructions: ED Anemia Type Not Specified Follow-Up: Lenin Rahman MD [Physician No Access] - Comments: As we have discussed, your burn is going through the natural process of tissue loss for burn of this degree. It has been 2 months since your burn and there is no evidence of infection or a "wet gangrene". As such, the main issue is how much tissue will you ultimately lose, and whether or not the bone needs to be trimmed down and a tissue flap put over the end. Only hand surgeon can ultimately make this discussed termination, and as such, you need to follow-up with them. Please call to make an appointment for follow-up. As far as your ongoing anemia and your dialysis needs, we are unable to transfer you to [place]. Due to the fallout from COVID-19 and delays of care for patients an elective procedure cancellations, hospitals all over [facility] are filled beyond capacity, and are not excepting any transfers of noncritical patients from our hospital at this time. To transfuse you here when you do not have dialysis until tomorrow and you are having stable blood pressure and heart rate would be irresponsible, as we have no way to get the fluid off if you become fluid overloaded from the transfusion. Giving diuretics is not an option because your kidneys no longer make urine. As such, the best plan is either to go to [place] and present there directly or to come around 1:00 tomorrow morning for reevaluation to see if you need a transfusion before dialysis. You may also go to the [facility] clinic after dialysis to determine when you can next be dialyzed in the next couple of days. If you develop severe symptoms, you may return to the emergency department at any time, and we will do our best to help you. Discharge Date/Time: 07/04/21 18:55
== END 2021-07-04 18:55 | disposition home or self-care (01) ==
LOC: ED 17:04
DX: T23.322A Burn of third degree of single left finger (nail) except thumb, initial encounter (principal); D64.9 Anemia, unspecified; N28.9 Disorder of kidney and ureter, unspecified; E11.22 Type 2 diabetes mellitus with diabetic chronic kidney disease; I13.11 Hypertensive heart and chronic kidney disease without heart failure, with stage 5 chronic kidney disease, or end stage renal disease; N18.6 End stage renal disease; Z99.2 Dependence on renal dialysis
CPT/HCPCS: 99281; 99284